=== PATIENT | female | born 1965 | race Caucasian/White ===

== ENCOUNTER 2017-05-05 18:04 | Emergency (ER) | payer MEDICAID ==
[~2017-05-05] VITALS: Ht 172.7 cm; Wt 79.4 kg
[~2017-05-05 18:04] MED LIST: ALPRAZOLAM0.5 M3 PO; AMLODIPINE5 M1 PO; APAP/HYDROCODON1 TA9 PO; FLEXERIL10 MG PO; GABAPENTIN600 MG PO; KEFLEX 500MG.500 MG PO; MELOXICAM7.5 MG PO; NOMEDS XX; NORCO 325 MG-51 TAB PO; NORVASC 5MG. TAB5 MG PO; PREMARIN 0.3MG0.3 MG PO; SUMATRIPTAN SUC50 M1 PO
[2017-05-05] MEDS ORDERED: SUBOXONE1 FI1 SL (18:14)
[2017-05-05] MEDS ORDERED: PREDNISONE 20MG20 MG PO (18:26)
[2017-05-05] MEDS ORDERED: AUGMENTIN 875-1 EACH PO (18:27)
[2017-05-05] MEDS ORDERED: TESSALON PERLE100 M1 PO (18:27)
--- NOTE | 2017-05-05 18:33 | [facility] Report ---
History of Present Issue Date/Time Seen by Provider 05/05/17 5213 Visit Reason Pt arrived:Walked Presenting Problem:PT STATES NAUSEA, COUGH AND CONGESTION FOR A WEEK Location if Accident: Onset of symptoms date/time:/ or onset unknown for:MEDICAL HX UNKNOWN Have you (or family members/close friends) recently traveled outside the [place]? N If Yes, where/when: Have you had exposure to infectious disease within the past month? TB? Other? Specify: Source patient, RN notes reviewed Exam Limitations no limitations Comment Cough and congestion for 4-5 days. Thinks she may have had fever. Sweats and chills. She is a smoker. Cough mostly non productive. Denies ear pain or sore throat. ALLERGIES Coded Allergies: No Known Allergies (10/27/15) Home Medications Active Scripts Amlodipine Besylate (Norvasc) 5 MG PO DAILY #30 TAB Prov: 10/27/15 Reported Medications Conjugated Estrogens (Premarin 0.3MG. Tablet) 0.3 MG PO DAILY #30 BUPRENORPHINE HCL/NALOXONE HCL (Suboxone 12 MG-3 MG Sl Film) 1 SL DAILY History Medical History General CAD? No Angina: No DC: No Hypertension? No Hyperlipidemia? No CHF? No DVT? No PE? No COPD? No Asthma? No Anemia? No GERD? No Gastric ulcers? No GI Bleed? No Hernia? No Thyroid Problems? No Hypothyroidism? No CVA? No Seizures? No Diabetes? No Renal Insuffiency? No UTI? No Stones? Yes GB Disease: Yes Nephritic Syndrome? No Asplenia? No Hepatitis? No Sickle Cell Disease? No Arthritis? No Migraines? Yes Cataracts? No Glaucoma? No MRSA? Yes HIV? No TB? No Anxiety? No Depression? No Cancer? No Immunization HX DT/Tetanus Unknown Surgical Hx Previous Surgery?Y GALLBLADDER Appendectomy PARTIAL HYSTERECTOMY L BREAST BIOPSY KNEE ARTHOSCOPY Social History Smoking Hx Smoker: Current Every Day Smoker Tobacco: Yes Type Cigarettes Packs/day < 1 Pack Alcohol Alcohol: No Review of Systems All Other Systems Reviewed and Negative Respiratory cough, wheezing Physical Exam Vital Signs Vital Signs Date Time Temp Pulse Resp B/P Pulse O2 O2 Flow FiO2 Ox Delivery Rate 05/05 1812 98.9 68 18 123/79 97 - WBC >12,000 or <4,000 or 10% bands? 2 or more SIRS Criteria Met? B/P:123/79 MAP:93 Creatinine >2.0? UA output<0.5ml/kg/hr for 2 hrs? Platelet count >100,000? Lactate >2.0mmol/1? INR >1.2 or PTT > than 60 sec? Evidence of Organ Dysfunction? Provider documented clinical suspician of infection? Sepsis Criteria Count: 0 Sepsis Risk: General Appearance normal appearance, no apparent distress Respiratory Status No: respiratory distress, trachea midline, chest symmetrical. Lung Sounds bilateral: normal breath sounds, lungs clear. Cardiovascular normal exam, regular rate/rhythm, no peripheral edema, no gallop, no JVD, no murmur, no rub Extremities non-tender, normal range of motion, normal inspection, normal capillary refill Neurologic alert, normal exam, oriented x 3 Mental status normal mood/affect Medical Decision Making LABS/Meds/Orders Pt receiving controlled substance in ED? No Departure Departure Time of Disposition 1823 Disposition DC Home or Self Care(routine) Clinical Impression Primary Impression: Bronchitis Condition STABLE Referrals ALF NUNO APRN (Family) Patient Instructions Acute Bronchitis Discharge Counseling Counseled pt/family regarding diagnosis, medications/RX, home care, follow up needs Prescriptions Current Visit Scripts Prednisone (Prednisone 20MG) 20 MG PO BID #10 TAB Benzonatate (Tessalon Perle) 100 MG PO TID #15 SGL Amoxicillin/Potassium Clav (Augmentin 875-125 Tablet) 1 EACH PO BID #20 TAB at 1833
[2017-05-05 18:39] VITALS: BP 123/79
--- OUTSIDE RECORDS SUMMARY | 2017-05-06 19:27 | External Medical Summary Rpt ---
Author Author , AMELIA Organization AMELIA Address Unknown Phone [email or web address] Fuel Care Team Providers Care Mixer Attendant Name Role Phone [employer], Unavailable Unavailable [employer], Unavailable Unavailable [employer] KC AND, KC AND Unavailable Unavailable BEINEKE MARY, BEINEKE Unavailable Unavailable MARY [facility], Unavailable Unavailable [facility] DOODNAUTH SENA, Unavailable Unavailable DOODNAUTH SENA JUAN LENIN, JUAN Unavailable Unavailable LENIN INGRID VERDE MD, Unavailable Unavailable INGRID VERDE MD TEE RHO, TEE Unavailable Unavailable RHO HARPEL JOSE RAMON, HARPEL Unavailable Unavailable JOSE RAMON DOWLING SAIMA, DOWLING Unavailable Unavailable [facility], Unavailable Unavailable [facility] Unavailable Unavailable [facility], [facility] HAYES TRA, HAYES TRA Unavailable Unavailable YAAKOV, YAAKOV Unavailable Unavailable YAAKOV NAN, YAAKOV Unavailable Unavailable NAN MASON CHARITO, MASON CHARITO Unavailable Unavailable [facility], [facility] ZORAIDA ARTURO, ZORAIDA Unavailable Unavailable ARTURO ZORAIDA ARTURO, ZORAIDA Unavailable Unavailable [facility]O [facility] Unavailable Unavailable DISEASE, [facility] Unavailable Unavailable URGENT TREAT, [facility]available [facility], [facility] SCALF KEITH, SCALF KEITH Unavailable Unavailable SOTINGEANU MARY, Unavailable Unavailable SOTINGEANU MARY [facility] Unavailable Unavailable EMERGENCY PHYS, [facility]ERGENC[facility]YS [facility], Unavailable Unavailable [facility] Unavailable Unavailable [facility], [facility] Unavailable Unavailable AGENCY, [facility] Purpose Continuity of Care Document - 05-18-2014 through 2016 Problems Code Diagnosis DOS Provider Status K219 GASTRO-ESOP 04-05-2017 [facility] WITHOUT IN ESOPHAGITIS K5900 CONSTIPATIO 04-05-2017 [facility] N [facility] UNSPECIFIED SOLUTIONS IN R0781 PLEURODYNIA 04-05-2017 [facility] IN R600 LOCALIZED 04-05-2017 [facility] IN Z1231 ENCOUNTER 04-05-2017 [facility] MALIG SOLUT[facility] NEOPLASM IN BREAST 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 OTHER 06-15-2016 [facility] SPECIFIED [facility] DISORDERS OF ADRENAL GLAND R4781 SLURRED 06-15-2016 [facility] [place] SPEECH [facility] M519 UNS THOR 05-22-2016 [facility] AR INC LUMBOSACRAL IV DISC D/O B0230 ZOSTER 05-03-2016 [facility] DISEASE URGENT UNSPECIFIED TREAT B028 ZOSTER WITH 05-03-2016 [facility] OTHER COUNTY COMPLICATIO URGENT NS TREAT M5116 INTERVERTEB 02-22-2016 [facility] DISC [facility] D/O INC W/RADICULOP ATHY LUMB RGN [id number] OTHER LONG 01-24-2016 [facility] TERM [facility] CURRENT INC DRUG THERAPY M4644 DISCITIS 12-28-2015 [facility]PEC[facility] THORACIC INC REGION M545 LOW BACK 12-07-2015 [facility] PAIN [facility] INC 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 M8618 OTHER ACUTE 11-20-2015 [facility] OSTEOMYELIT IS OTHER SITE R197 DIARRHEA 11-17-2015 [facility]PEC[facility] INC M159 POLYOSTEOAR 11-03-2015 [facility] UNSPECIFIED AGENCY Z452 ENCOUNTER 11-03-2015 [facility] MGMT AGENCY VASCULAR ACCESS DEVICE Z720 TOBACCO USE 11-03-2015 [facility] AGENC[facility] I10 ESSENTIAL 10-28-2015 [facility] HYPERTEN[facility]O [facility] N I159 SECONDARY 10-28-2015 [facility] N INC UNSPECIFIED R51 HEADACHE 10-28-2015 [facility] U18947 MIGRAINE 10-27-2015 [facility] W/[facility] NOT INTRACT PLLC W/O STAT MIGRAIN M129 ARTHROPATHY 10-07-2015 ZORAIDA ARTURO UNSPECIFIED M869 OSTEOMYELIT 10-07-2015 ZORAIDA ARTURO IS UNSPECIFIED M5184 OTHER 10-06-2015 [facility] RAL DISC D/O THORACIC REGION E441 MILD 10-04-2015 [facility] ORIE MALNUTRITIO N E871 HYPO-OSMOLA 10-04-2015 [facility] HYPONATREMI A K521 TOXIC 10-04-2015 [facility] ITIS AND COLITIS K5909 OTHER 10-04-2015 [facility] N N179 ACUTE 10-04-2015 [facility] KIDNEY [facility] FAILURE UNSPECIFIED [id number] ADVERSE 10-04-2015 [facility] EFFECT [facility] SYS ANTIBIOTICS INIT ENCNTR Z681 BODY MASS 10-04-2015 [facility] INDEX [facility] 19 OR LESS ADULT M549 DORSALGIA 09-29-2015 [facility] INC B15941 PAIN IN 09-01-2015 [facility]PEC[facility] SHOULDER INC M546 PAIN IN 08-24-2015 [place] [facility] R937 ABN FIND ON 08-24-2015 [place] [facility] O[facility] PART [facility]ING ASS MUSCULOSKEL ETAL SYS M5126 OTH 08-15-2015 [place] INTER[facility] MEDICAL RAL DISC IMAGING ASS DISPLACEMEN T LUMBAR RGN R200 ANESTHESIA 08-15-2015 [place] OF SKIN [facility] 7242 LUMBAGO 04-02-2015 [facility] 54960 DEGEN 03-28-2015 [facility] LUMBAR/LUMB N EMERGENCY OSACRAL PHYS INTERVERTEB RAL DISC 7244 THORACIC/KATHRINE 03-28-2015 [facility] MBOSACR[facility] RADIOLOGY NEURITIS/RA DICULITIS UNSPEC 8472 LUMBAR 03-28-2015 [facility] SPR[facility] AND N EMERGENCY STRAIN PHYS E9270 OVEREXERTIO 03-28-2015 [facility] N FROM N EMERGENCY SUDDEN PHYS STRENUOUS MOVEMENT 12834 TRICHOMONAL 07-12-2014 INGRID VERDE MD VULVOVAGINI TIS 73318 DETRUSOR 07-12-2014 [facility] Mock SPHINCTER AMMON CHASE DYSSYNERGIA 6272 SYMPTOMATIC 07-12-2014 INGRID VERDE MD MENOPAUSAL/ FEMALE CLIMACTERIC STATES 39487 UNS PROLAPS 07-06-2014 [facility] Mock VAG SINGH AMMON CHASE W/O MENTION UTERN PROLAPS 6256 FEMALE 07-06-2014 INGRID VERDE MD INCONTINENC E 6259 UNSPEC 07-01-2014 INGRID VERDE MD ASSOC W/FEMALE GENITAL ORGANS 6273 POSTMENOPAU 07-01-2014 INGRID VERDE MD ATROPHIC VAGINITIS V7231 ROUTINE 07-01-2014 [facility] Mock GYNECOLOGIC AMMON CHASE AL EXAMINATION V7641 SCREENING 07-01-2014 INGRID VERDE MD MALIGNANT NEOPLASM OF THE RECTUM 6827 CELLULITIS 05-18-2014 [facility] ABSCESS N EMERGENCY OF FOOT PHYS EXCEPT TOES Allergies, Adverse Reactions, Alerts Clinical Alert Notifications Alert Asthma: absence of controller with h/o SA beta agonist Asthma: no influenza vaccine in the last 365 days Medications Na ND Rx Da Fi Fi Am Da Di Ph RX Ph St me C No te ll ll ou ys ag ar # ys at rm s nt no ma ic us Or Da si cy ia de te s n re d BU 00 07 08 14 7 00 RO Ac AK 05 -1 -0 .0 00 SS ti EN 40 3- 4- 00 01 ve OR [address] PH 91 17 17 01 UG IN 3 78 S -N AL OX ON 8- 2 MG SL GA 68 07 07 90 30 00 CA Ac BA 46 -0 -2 .0 00 RL ti PE 20 3- 8- 00 00 IS ve NT 12 20 20 77 LE IN 60 17 [address] 60 UG 0 S MG TA BL ET BU 00 07 07 16 8 00 CA Ac AK 05 -0 -2 .0 00 RL ti EN 40 5- 8- 00 00 IS ve OR 18 20 20 77 LE PH 91 17 [address] -N UG AL S OX ON 8- 2 MG SL HY 00 06 07 [address] 18 -2 -2 .0 00 RL ti OX 50 8- 1- 00 00 IS ve YZ 61 20 20 77 LE IN 50 17 [address] CHISHOLM UG M S 50 MG CA P IB 67 06 07 90 30 00 CA Ac UP 87 -2 -2 .0 00 RL ti RO 70 8- 1- 00 00 IS ve FE 32 20 20 77 LE N 10 17 [address] 0 UG MG S TA BL ET VE 00 06 07 18 16 00 CA Ac NT 17 -2 -2 .0 00 RL ti OL 30 8- 1- 00 00 IS ve IN 68 20 20 77 LE 22 17 [address] Coughlin UG 90 S MC G IN CUADRA LE R PA 00 06 07 30 30 00 CA Ac RO 37 -2 -2 .0 00 RL ti XE 87 8- 1- 00 00 IS ve TI 00 20 20 77 LE NE 21 17 17 68 0 91 HC UG L S 20 MG TA BL ET AK 00 06 07 30 30 00 CA Ac EM 04 -2 -2 .0 00 RL ti AR 61 8- 1- 00 00 IS ve IN 10 20 20 77 LE 08 17 [address] 3 UG MG S TA BL ET AM 67 06 07 30 30 00 CA Ac LO 87 -2 -2 .0 00 RL ti DI 70 8- 1- 00 00 IS ve PI 19 20 20 77 LE NE 90 17 [address] BE UG SY S LA TE 10 MG TA B BU 00 06 07 14 7 00 RO Ac AK 05 -2 -2 .0 00 SS ti EN 40 8- 1- 00 01 ve OR [address] PH 91 17 17 82 UG IN 3 66 S -N AL OX ON 8- 2 MG SL AK 00 06 07 90 30 00 CA Ac OP 11 -2 -1 .0 00 RL ti RA 51 3- 4- 00 00 IS ve NO 66 20 20 77 LE LO 00 17 17 [address] 20 UG S MG TA BL ET ME 00 05 [address] Ac TH 60 -2 -1 .0 00 AZ ti OC 34 3- 6- 00 00 A ve AR [address] GEOFF 52 17 17 64 UG MO 1 67 L SP 50 EC 0 IA MG LT Y TA CA BL RE ET HY 00 05 [address] 18 -0 -2 .0 00 AZ ti OX 50 5- 6- 00 00 A ve YZ [address] IN 50 17 17 64 UG E 5 66 PA SP M EC 50 IA LT MG Y CA CA RE P ME 00 05 [address] Ac TH 60 -0 -2 .0 00 AZ ti OC 34 5- 6- 00 00 A ve AR [address] BA 52 17 17 64 UG MO 1 67 L SP 50 EC 0 IA MG LT Y TA CA BL RE ET AK 00 05 [address] Ac OP 60 -0 -2 .0 00 AZ ti RA 35 5- 6- 00 00 A ve NO [address] LO 32 17 17 64 UG L 1 68 20 SP EC MG IA LT TA Y BL CA ET RE NI 43 04 [address] Ac CO 59 -2 -1 .0 00 AZ ti TI 80 6- 9- 00 00 A ve NE [address] 82 17 17 60 UG 21 8 26 SP MG EC /2 IA 4H LT R Y PA CA TC RE H IB 67 04 [address] Ac UP 87 -2 -1 .0 00 AZ ti RO 70 6- 9- 00 00 A ve FE [address] N 90 17 17 60 UG 40 5 27 0 SP MG EC IA TA LT BL Y ET CA RE AM 69 04 [address] Ac LO 09 -2 -1 .0 00 AZ ti DI 70 6- 9- 00 00 A ve PI [address] NE 80 17 17 60 UG 5 53 BE SP SY EC LA IA TE LT Y 10 CA RE MG TA B AK 00 04 [address] Ac EM 04 -2 -1 .0 00 AZ ti AR 61 6- 9- 00 00 A ve IN [address] 08 17 17 60 UG 0. 1 54 3 SP MG EC IA TA LT BL Y ET CA RE PA 00 04 [address] Ac RO 37 -2 -1 .0 00 AZ ti XE 87 6- 9- 00 00 A ve TI [address] TYLER 21 17 17 60 UG 0 55 HC SP L EC 20 IA LT MG Y CA TA RE BL ET VE 00 04 [address] Ac NT 17 -2 -1 .0 00 AZ ti OL 30 8- 9- 00 00 A ve IN [address] 22 17 17 61 UG HF 0 26 A SP 90 EC IA MC LT G Y IN CA CUADRA RE LE R GA 68 03 03 90 30 00 CA Ac BA 46 -0 -3 .0 00 RL ti PE 20 6- 1- 00 00 IS ve NT 12 20 20 77 LE IN 60 17 [address] 60 UG 0 S MG TA BL ET BU 00 03 03 10 5 00 RO Ac AK 05 -0 -2 .0 00 SS ti EN 40 2- 4- 00 01 ve OR [address] PH 91 17 17 33 UG IN 3 58 S -N AL OX ON 8- 2 MG SL GA 68 02 03 90 30 00 CA Ac BA 46 -0 -1 .0 00 RL ti PE 20 7- 0- 00 00 IS ve NT 12 20 20 76 LE IN 60 17 [address] 60 UG 0 S MG TA BL ET AK 00 02 02 30 30 00 CA Ac EM 04 -0 -2 .0 00 RL ti AR 61 3- 4- 00 00 IS ve IN 10 20 20 76 LE 08 17 [address] 3 UG MG S TA BL ET AM 67 02 02 30 30 00 CA Ac LO 87 -0 -2 .0 00 RL ti DI 70 3- 4- 00 00 IS ve PI 19 20 20 76 LE NE 90 17 17 40 5 07 BE UG SY S LA TE 10 MG TA B PA 00 02 02 30 30 00 CA Ac RO 37 -0 -2 .0 00 RL ti XE 87 3- 4- 00 00 IS ve TI 00 20 20 76 LE NE 21 17 17 97 0 75 HC UG L S 20 MG TA BL ET GA 68 01 02 90 30 00 CA Ac BA 46 -1 -0 .0 00 RL ti PE 20 0- 3- 00 00 IS ve NT 12 20 20 76 LE IN 60 17 [address] 60 UG 0 S MG TA BL ET AK 00 12 01 30 30 00 CA Ac EM 04 -2 -2 .0 00 RL ti AR 61 9- 0- 00 00 IS ve IN 10 20 20 76 LE 08 16 [address] 3 UG MG S TA BL ET AM 67 12 01 30 30 00 CA Ac LO 87 -2 -2 .0 00 RL ti DI 70 9- 0- 00 00 IS ve PI 19 20 20 76 LE NE 90 16 [address] MORA UG SY S LA TE 10 MG TA B GA 68 12 01 90 30 00 CA Ac BA 46 -1 -0 .0 00 RL ti PE 20 2- 9- 00 00 IS ve NT 12 20 20 76 LE IN 60 16 [address] 60 UG 0 S MG TA BL ET Procedures Procedure [place] [address] [facility] HEAD/BRAI 6 RADIOLOGY N W/[place] [address] [facility] ABDOMEN & 6 RADIOLOGY PELVIS W/O CONTRAST MATERIAL DRUG TST G0477 [facility] PRESUMP;C 6 [facility] PBL BEING INC INC READ DC OPT OBV ONLY DRUG TST G0477 [facility] PRESUMP;C 6 [facility] PBL BEING INC INC READ DC OPT OBV ONLY DRUG TEST G0481 [facility] DEFINITV [address] [facility] [address] ID INC INC METH P DAY 8-14 DRUG CL DRUG TST G0477 [facility] PRESUMP;C 6 [facility] PBL BEING INC INC READ DC OPT OBV ONLY DRUG TEST G0480 [facility] DEFINITV [address] [facility] [address] [address] ID INC INC METH P DAY 1-7 DRUG CL DRUG TST G0477 [facility] PRESUMP;C 6 [facility] PBL BEING INC INC READ DC OPT OBV ONLY DRUG TEST G0481 [facility] DEFINITV [address] [facility] [address] [address] ID INC INC METH P DAY 8-14 DRUG CL DRUG 53588 [facility] SCREENING 6 [facility] INC INC BENZODIAZ EPINES 1-12 DRUG TST G0477 [facility] PRESUMP;C 6 [facility] PBL BEING INC INC READ DC OPT OBV ONLY DRUG 58774 [facility] SCREENING 6 [facility] OPIOIDS INC INC & OPIATE ANALOGS 5/MORE DRUG TST G0477 [facility] PRESUMP;C 6 [facility] PBL [facility]ING INC INC READ DC OPT OBV ONLY HIT ABX S9502 [facility], [facility], ANTIVIRAL 6 INC INC /ANTIFUNG AL; Q8 HRS CLOTH EXAMINER HAND HIT ABX S9502 [facility], AMERIMED, ANTIVIRAL 6 INC INC /ANTIFUNG AL; Q8 HRS CLOTH EXAMINER HAND HIT ABX S9502 [facility], AMERIMED, ANTIVIRAL 6 INC INC /ANTIFUNG AL; Q8 HRS CLOTH EXAMINER HAND HIT ABX S9502 [facility], AMERIMED, ANTIVIRAL 6 INC INC /ANTIFUNG AL; Q8 HRS CLOTH EXAMINER HAND INJ J2543 [facility], [facility], PIPERACIL 6 INC INC HERMILO SOD/TAZOB ACTAM SOD 1 G/0.125 G COMPREHEN 22957 [facility] SIVE 6 [facility] METABOLIC INC INC PANEL COLLECTIO 13203 [facility] N VENOUS 6 [facility] BLOOD INC INC VENIPUNCT URE SEDIMENTA 18304 B[facility] TION RATE 6 [facility] RBC INC INC NON-AUTOM ATED BLOOD 93223 [facility] COUNT 6 [facility] COMPLETE INC INC AUTO&AUTO DIFRNTL WBC C-REACTIV 23120 [facility] E PROTEIN 6 [facility] INC INC DIRECT G0299 [facility] RN 6 [facility] AGENCY AGENCY SPICE SET EA 15 MIN INJ J2543 [facility], AMERIMED, PIPERACIL 6 INC INC HERMILO SOD/TAZOB ACTAM SOD 1 G/0.125 G INJECTION J1642 [facility], [facility], HEPARIN 6 INC INC SODIUM PER 10 UNITS HIT ABX S9502 [facility], AMER[facility]ED, ANTIVIRAL 6 INC INC /ANTIFUNG AL; Q8 HRS CLOTH EXAMINER HAND HIT ABX S9502 [facility], AMER[facility]ED, ANTIVIRAL 6 INC INC /ANTIFUNG AL; Q8 HRS CLOTH EXAMINER HAND DIRECT G0299 ARELI [facility] RN 6 [facility] AGENCY AGENCY SPICE SET EA 15 MIN INJ J2543 [facility], AMERIMED, PIPERACIL 6 INC INC HERMILO SOD/TAZOB ACTAM SOD 1 G/0.125 G INJ J2543 [facility], AMERIMED, PIPERACIL 6 INC INC HERMILO SOD/TAZOB ACTAM SOD 1 G/0.125 G DRUG TST G0477 [facility] PRESUMP;C 6 [facility] PBL BEING INC INC READ DC OPT OBV ONLY HIT ABX S9502 AMERIM[facility], AMERIMED, ANTIVIRAL 6 INC INC /ANTIFUNG AL; Q8 HRS CLOTH EXAMINER HAND HIT ABX S9502 [facility], AMERIMED, ANTIVIRAL 6 INC INC /ANTIFUNG AL; Q8 HRS CLOTH EXAMINER HAND HIT ABX S9502 [facility], AMERIMED, ANTIVIRAL 6 INC INC /ANTIFUNG AL; Q8 HRS CLOTH EXAMINER HAND HIT ABX S9502 AMERIM[facility], AMERIMED, ANTIVIRAL 6 INC INC /ANTIFUNG AL; Q8 HRS CLOTH EXAMINER HAND HIT ABX S9502 AMERIMED, AMERIMED, ANTIVIRAL 6 INC INC /ANTIFUNG AL; Q8 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 J1642 [facility], AMERIMED, HEPARIN 6 INC INC SODIUM PER 10 UNITS INJ J2543 [facility], AMERIMED, PIPERACIL 6 INC INC HERMILO SOD/TAZOB ACTAM SOD 1 G/0.125 G HIT ABX S9502 [facility], [facility], ANTIVIRAL 6 INC INC /ANTIFUNG AL; Q8 HRS CLOTH EXAMINER HAND COLLECTIO 42780 [facility] N VENOUS 6 [facility] BLOOD INC INC VENIPUNCT URE BASIC 02651 [facility] METABOLIC 6 [facility] PANEL INC INC CALCIUM TOTAL DRUG 32083 [facility] SCREEN 6 [facility] QUANTITAT INC INC JUAN PABLO VANCOMYCI N SEDIMENTA 71324 [facility] TION RATE 6 [facility] RBC INC INC NON-AUTOM ATED BLOOD 49861 [facility] COUNT 6 [facility] COMPLETE INC INC AUTO&AUTO DIFRNTL WBC HIT ABX S9501 [facility], AMER[facility]ED, ANTIVIRAL 6 INC INC /ANTIFUNG AL TX; Q12 HRS LEVI C-REACTIV 31601 [facility] E PROTEIN 6 [facility] INC INC DIRECT G0299 ARELI [facility] RN 6 [facility] HEALTH/HO AGENCY AGENCY SPICE SET EA 15 MIN HIT ABX S9501 [facility], AMERIMED, ANTIVIRAL 6 INC INC /ANTIFUNG AL TX; Q12 HRS LEVI HIT ABX S9502 [facility], AMERIMED, ANTIVIRAL 6 INC INC /ANTIFUNG AL; Q8 HRS CLOTH EXAMINER HAND HIT ABX S9502 AMERIMED, AMERIMED, ANTIVIRAL 6 INC INC /ANTIFUNG AL; Q8 HRS CLOTH EXAMINER HAND HIT ABX S9501 [facility], AMERIMED, ANTIVIRAL 6 INC INC /ANTIFUNG AL TX; Q12 HRS LEVI HIT ABX S9501 [facility], AMERIMED, ANTIVIRAL 6 INC INC /ANTIFUNG AL TX; Q12 HRS LEVI HIT ABX S9502 [facility], AMERIMED, ANTIVIRAL 6 INC INC /ANTIFUNG AL; Q8 HRS CLOTH EXAMINER HAND DRUG 85754 [facility] SCREEN 6 [facility] QUANTITAT INC INC JUAN PABLO VANCOMYCI N BASIC 55370 [facility] METABOLIC 6 [facility] PANEL INC INC CALCIUM TOTAL COLLECTIO 95607 [facility] N VENOUS 6 [facility] BLOOD INC INC VENIPUNCT URE HIT ABX S9502 AMERIMED, AMERIMED, ANTIVIRAL 6 INC INC /ANTIFUNG AL; Q8 HRS CLOTH EXAMINER HAND HIT ABX S9501 [facility], AMERIMED, ANTIVIRAL 6 INC INC /ANTIFUNG AL TX; Q12 HRS LVEI HIT ABX S9501 [facility], AMERIMED, ANTIVIRAL 6 INC INC /ANTIFUNG AL TX; Q12 HRS LEVI HIT ABX S9502 AMER[facility], AMERIMED, ANTIVIRAL 6 INC INC /ANTIFUNG AL; Q8 HRS CLOTH EXAMINER HAND HIT ABX S9502 [facility], AMER[facility]ED, ANTIVIRAL 6 INC INC /ANTIFUNG AL; [place] [address] [place] [facility] HEAD/BRAI 6 MEDICAL MARY N W/O IMAGING CONTRAST ASS MATERIAL INJECTION J2405 [facility] 6 [facility] ONDANSETR INC INC ON HCL PER 1 MG COMPREHEN 01449 [facility] SIVE 6 [facility] METABOLIC INC INC PANEL THERAPEUT 90028 [facility] IC 6 [facility] INJECTION INC INC IV PUSH EACH NEW DRUG BLOOD 78953 [facility] COUNT 6 [facility] COMPLETE INC INC AUTO&AUTO DIFRNTL WBC HIT ABX S9501 [facility], AMERIMED, ANTIVIRAL 6 INC INC /ANTIFUNG AL TX; Q12 HRS LEVI THER 07868 [facility] PROPH/DX 6 [facility] NJX IV INC INC PUSH SINGLE/1S T SBST/DRUG C-REACTIV 42125 [facility] E PROTEIN 6 [facility] INC INC THERAPEUT 91601 [facility] IC 6 [facility] PROPHYLAC INC INC TIC/DX INJECTION SUBQ/IM HIT ABX S9501 AMERIMED, AMERIMED, ANTIVIRAL 6 INC INC /ANTIFUNG AL TX; Q12 HRS LEVI SEDIMENTA 18694 [facility] TION RATE 6 [facility] RBC INC INC NON-AUTOM ATED BLOOD 01639 [facility] COUNT 6 [facility] COMPLETE INC INC AUTO&AUTO DIFRNTL WBC DIRECT G0299 [facility]LI [place] [facility] RN 6 [facility] HEALTH/HO AGENCY AGENCY SPICE SET EA 15 MIN COLLECTIO 59080 [facility] N VENOUS 6 [facility] BLOOD INC INC VENIPUNCT URE HIT ABX S9502 AMERIMED, AMERIMED, ANTIVIRAL 6 INC INC /ANTIFUNG AL; Q8 HRS CLOTH EXAMINER HAND BASIC 29246 [facility] METABOLIC 6 [facility] PANEL INC INC CALCIUM TOTAL DRUG 41932 [facility] SCREEN 6 [facility] QUANTITAT INC INC JUAN PABLO VANCOMYCI N HIT ABX S9502 AMERIMED, AMERIMED, ANTIVIRAL 6 INC INC /ANTIFUNG AL; Q8 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 J3370 AMERIMED, AMERIMED, 6 INC INC VANCOMYCI N HCL 500 MG HIT ABX S9501 AMER[facility], AMERIMED, ANTIVIRAL 6 INC INC /ANTIFUNG AL TX; Q12 HRS LEVI INJ J2543 [facility], AMERIMED, PIPERACIL 6 INC INC HERMILO SOD/TAZOB ACTAM SOD 1 G/0.125 G HIT ABX S9501 AMER[facility], AMERIMED, ANTIVIRAL 6 INC INC /ANTIFUNG AL TX; Q12 HRS LEVI HIT ABX S9502 AMERIMED, AMERIMED, ANTIVIRAL 6 INC INC /ANTIFUNG AL; Q8 HRS CLOTH EXAMINER HAND HIT ABX S9502 AMERIMED, AMERIMED, ANTIVIRAL 6 INC INC /ANTIFUNG AL; Q8 HRS CLOTH EXAMINER HAND HIT ABX S9501 AMER[facility], AMERIMED, ANTIVIRAL 6 INC INC /ANTIFUNG AL TX; Q12 HRS LEVI HIT ABX S9501 [facility], AMERIMED, ANTIVIRAL 6 INC INC /ANTIFUNG AL TX; Q12 HRS LEVI HIT ABX S9502 AMER[facility], AMERIMED, ANTIVIRAL 6 INC INC /ANTIFUNG AL; Q8 HRS CLOTH EXAMINER HAND HIT ABX S9502 AMERIMED, AMERIMED, ANTIVIRAL 6 INC INC /ANTIFUNG AL; Q8 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 J3370 AMERIMED, AMERIMED, 6 INC INC VANCOMYCI N HCL 500 MG INJECTION J1642 [facility], AMERIMED, HEPARIN 6 INC INC SODIUM PER 10 UNITS HIT ABX S9501 AMERIMED, AMERIMED, ANTIVIRAL 6 INC INC /ANTIFUNG AL TX; Q12 HRS LEVI INJ J2543 [facility], AMERIMED, PIPERACIL 6 INC INC HERMILO SOD/TAZOB ACTAM SOD 1 G/0.125 G HIT ABX S9502 AMERIMED, AMERIMED, ANTIVIRAL 6 INC INC /ANTIFUNG AL; Q8 HRS CLOTH EXAMINER HAND HIT ABX S9502 AMERIMED, AMERIMED, ANTIVIRAL 6 INC INC /ANTIFUNG AL; Q8 HRS CLOTH EXAMINER HAND DRUG 94234 [facility] SCREEN 6 [facility] QUANTITAT INC INC JUAN PABLO VANCOMYCI N BASIC 81851 [facility] METABOLIC 6 [facility] PANEL INC INC CALCIUM TOTAL COLLECTIO 81053 B[facility] N VENOUS 6 [facility] BLOOD INC INC VENIPUNCT URE DIRECT G0299 ARELI ESPINOZA RN 6 [facility] HOME [facility] HEALTH HEALTH/HO AGENCY AGENCY SPICE SET EA 15 MIN C-REACTIV 04553 [facility] E PROTEIN 6 [facility] INC INC BLOOD 83317 [facility] COUNT 6 [facility] COMPLETE INC INC AUTO&AUTO DIFRNTL WBC SEDIMENTA 80095 [facility] TION RATE 6 [facility] RBC INC INC NON-AUTOM ATED HIT ABX S9502 AMERIM[facility], AMERIMED, ANTIVIRAL 6 INC INC /ANTIFUNG AL; Q8 HRS CLOTH EXAMINER HAND HIT ABX S9502 AMERIM[facility], AMERIMED, ANTIVIRAL 6 INC INC /ANTIFUNG AL; Q8 HRS CLOTH EXAMINER HAND HIT ABX S9502 AMERIMED, AMERIMED, ANTIVIRAL 6 INC INC /ANTIFUNG AL; Q8 HRS CLOTH EXAMINER HAND HIT ABX S9502 AMERIMED, AMERIMED, ANTIVIRAL 6 INC INC /ANTIFUNG AL; Q8 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 J1642 AMERIM[facility], AMERIMED, HEPARIN 6 INC INC SODIUM PER 10 UNITS INJECTION J3370 AMERIM[facility], AMERIMED, 6 INC INC VANCOMYCI N HCL 500 MG INJ J2543 [facility], AMERIMED, PIPERACIL 6 INC INC HERMILO SOD/TAZOB ACTAM SOD 1 G/0.125 G HIT ABX S9502 [facility]IM[facility], AMERIMED, ANTIVIRAL 6 INC INC /ANTIFUNG AL; Q8 HRS CLOTH EXAMINER HAND HIT ABX S9502 AMERIMED, AMERIMED, ANTIVIRAL 6 INC INC /ANTIFUNG AL; Q8 HRS CLOTH EXAMINER HAND DIRECT G0299 ARELI SINGLETON SNS RN 6 HOME [facility] HEALTH/HO AGENCY AGENCY SPICE SET EA 15 MIN C-REACTIV 20875 [facility] E PROTEIN 6 [facility] INC INC SEDIMENTA 61786 [facility] TION RATE 6 [facility] RBC INC INC NON-AUTOM ATED BLOOD 30561 [facility] COUNT 6 [facility] COMPLETE INC INC AUTO&AUTO DIFRNTL WBC HIT ABX S9502 AMERIMED, AMERIMED, ANTIVIRAL 6 INC INC /ANTIFUNG AL; Q8 HRS CLOTH EXAMINER HAND BASIC 69973 [facility] METABOLIC 6 [facility] PANEL INC INC CALCIUM TOTAL DRUG 85403 [facility] SCREEN 6 [facility] QUANTITAT INC INC JUAN PABLO VANCOMYCI N HIT ABX S9502 AMERIMED, AMERIMED, ANTIVIRAL 6 INC INC /ANTIFUNG AL; Q8 HRS CLOTH EXAMINER HAND DRUG TST G0477 [facility] PRESUMP;C 6 [facility] PBL BEING INC INC READ DC OPT OBV ONLY HIT ABX S9502 AMERIMED, AMERIMED, ANTIVIRAL 6 INC INC /ANTIFUNG AL; Q8 HRS CLOTH EXAMINER HAND HIT ABX S9502 AMERIMED, AMERIMED, ANTIVIRAL 6 INC INC /ANTIFUNG AL; Q8 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 J3370 AMERIMED, AMERIMED, 6 INC INC VANCOMYCI N HCL 500 MG INJECTION J1642 AMERIM[facility], AMERIMED, HEPARIN 6 INC INC SODIUM PER 10 UNITS DIRECT G0299 ARELI ESPINOZA RN 6 HOME [facility] HEALTH/HO AGENCY AGENCY SPICE SET EA 15 MIN [facility]OSPITAL 87707 [facility] DISCHARGE 6 ARTURO ARTURO DAY MANAGEMEN T 30 MIN/< INJ J2543 AMERIM[facility], AMERIMED, PIPERACIL 6 INC INC HERMILO SOD/TAZOB ACTAM SOD 1 G/0.125 G SBSQ 63197 [facility] 6 SENA SENA CARE/DAY 25 MINUTES SBSQ 69155 [facility] 6 SENA SENA CARE/DAY 25 MINUTES SBSQ 11663 [facility] 6 ARTURO ARTURO CARE/DAY 25 MINUTES SBSQ 69204 [facility] 6 SENA SENA CARE/DAY 25 MINUTES INTRODUCT [id number] [facility] ION OTH [address] [place] [address] ANTI-INFE CTIVE PERIPH VEIN PERQ INSERTION [id number] [facility] INFUSION [address] [place] [address] DEVICE RT BASILIC VEIN PERQ EXCISION [id number] [facility] THORACIC [address] [place] [address] [place] [address] [facility] [place] [facility] RADIOLOG[facility] NEEDLE PLACEMENT MODERATE 41785 [facility] [place] [facility] SEDATJ 6 RADIOLOGY [facility] SAME PHYS/QHP 5/>YRS INIT 30 MIN PRQ ASPIR 32417 [facility] [place] [facility] 6 RADIOLOGY [facility] PULPOSUS/ INTERVERT EBRAL DISC/PVRT TISS ULTRASONO [id number] [address] [facility] HEART WITH AORTA TRANSESOP HAGEAL SBSQ 20109 [facility] 6 SENA ESNA CARE/DAY 35 MINUTES INITIAL 97264 [facility] 6 SENA SENA CARE/DAY 70 MINUTES RADEX 28468 [facility] 6 [place] [facility] ORTHOPAED [place] 2/3 [facility] VIEWS COLLECTIO 45200 [facility] BLOOD [facility] INC VENIPUNCT URE BASIC 49512 [facility] METABOLIC 5 [facility] PANEL INC INC CALCIUM TOTAL BLOOD 80117 [facility] COUNT [facility] COMPLETE INC INC AUTO&AUTO DIFRNTL WBC DRUG 59454 [facility] SCREEN 5 [facility] QUANT INC INC AMPHETAMI CHEMO 1 OR 2 BLOOD 14972 [facility] COUNT [facility] COMPLETE INC INC AUTO&AUTO DIFRNTL WBC SEDIMENTA 01119 [facility] TION RATE 5 [facility] RBC INC INC NON-AUTOM ATED C-REACTIV 11759 [facility] E PROTEIN 5 [facility] INC INC COLLECTIO 36362 [facility] N VENOUS 5 [facility] BLOOD INC INC VENIPUNCT URE COMPREHEN 55463 [facility] SIVE 5 [facility] METABOLIC INC INC PANEL MRI 65191 [facility] SPINAL 5 [facility] CANAL INC INC THORACIC W/O CONTRAST MATRL MRI 96675 [facility] SP[facility]AL [facility] CANAL INC INC LUMBAR W/O CONTRAST MATERIAL 3D 56418 [facility] RENDERING 5 [facility] W/INTERP INC INC & POSTPROCE SS SUPERVISI ON RADEX 39708 [facility]TR[facility] [place] TEE SPINE 5 RADIOLOGY RHO LUMBOSACR AL 2/3 VIEWS COMPLEX 66476 [facility] UROFLOMET 4 [facility] RY COMPLX 79592 [facility] CYSTOMETR 4 [facility] O W/VOID PRESS & URETHRAL PROFIL 86867 [facility] TRANSVAGI 4 [facility] IADNA 23650 [facility] NEISSERIA 4 [facility] GONORRHOE AE DIRECT PROBE TQ BLOOD 54640 [facility] OCCULT 4 [facility] PEROXIDAS E ACTV QUAL FECES 1-3 SPEC CULTURE 47522 [facility] CHLAMYDIA 4 [facility] ANY SOURCE URINLS 44247 [facility] DIP 4 [facility] STICK/TAB LET REAGNT NON-AUTO MICRSCPY Encounters Encounter Start End Date Code Location Performer Type Date OFFICE 16533 [facility] 7 7 HEALTH T VISIT SOLUTIONS 25 IN MINUTES [facility] BLAZE - 6 6 [facility] OFFICE 12603 NADIA NUNO [facility] 6 6 [place] [address] URGENT MINUT[facility] BLAZE - 6 6 [facility] BLAZE - 6 6 [facility] BLAZE [facility] 6 6 [facility] BLAZE - 6 6 [facility] 6 [facility] OFFICE 96102 ABELARDO [facility] AND OUTPATIEN 6 6 T VISIT INFECTIOU 25 S DISEASE [facility] BLAZE [facility] 6 6 [facility] 85666 ABELARDO [facility] OUTPATIEN 6 6 T VISIT INFECTIOU 25 S DISEASE [facility] BLAZE [facility] 6 6 [facility] OUTPATIEN INC T HOME [facility], 6 6 HOME [facility] BLAZE - 6 6 [facility] OUTPATIEN INC T EMERGENCY 88799 BLAZE 6 6 [facility] DEPARTMEN [facility] T VISIT MODERATE SEVERITY HOSPITAL BLAZE - 6 6 [facility] OUTPATIEN INC EMERGENCY 37576 LAUREN MARTINEZ DEPT 6 6 [facility]IC[facility] HIGH SEVERITY& [facility] BLAZE [facility] 6 6 [facility] OUTPATIEN INC T EMERGENCY 31177 BLAZE 6 6 [facility] DEPARTMEN [facility] T VISIT MODERATE SEVERITY EMERGENCY 95834 LAUREN HALE 6 6 PHYSICIAN U [facility] T VISIT HIGH/URGE NT SEVERITY [facility], 6 6 HOME INPATIENT HEALTH [facility] BLAZE - 6 6 [facility] OUTPATIEN INC HOSPITAL BLAZE [facility] 6 6 [facility]EN [facility], 6 6 HOME INPATIENT HEALTH [facility] [place] [address] 6 HOSPITAL INPATIENT OFFICE 16741 [facility] 6 6 [place] T VISIT ORTHOPAED 15 [facility] MINUTES [facility]OSPITAL [facility]ZE [facility] 5 5 [facility] B[facility]ZE - 5 5 [facility] OUTPATIEN INC T OFFICE 44387 [facility] J[facility]AN OUTPATIEN 5 5 PHYSICIAN LENIN T VISIT S GROUP 10 MINUTES OFFICE 15391 [facility] 5 5 [place] ION ORTHOPAED NEW/ESTAB [facility] PATIENT 60 MIN OFFICE 27826 [facility] J[facility] OUTPATIEN 5 5 PHYSICIAN LENIN T VISIT S GROUP 10 MINUTES HOSPITAL BLAZE - 5 5 [facility]IEN [facility] B[facility] - 5 5 [facility] 5 5 [facility] T OFFICE 83207 [facility] OUTPATIEN 5 5 PHYSICIAN LENIN T VISIT S GROUP 10 MINUTES EMERGENCY 13982 LAUREN MCNEILL 5 5 PHYSICIAN DEPARTMEN S, PLLC T VISIT HIGH/URGE NT SEVERITY EMERGENCY 60023 [facility] BLAZE 5 5 MALATHI [facility] DEPARTMEN EMERGENCY T VISIT PHYS HIGH/URGE NT SEVERITY OFFICE 20362 [facility] OUTPATIEN 4 4 [facility] T VISIT 15 MINUTES HOSPITAL BLAZE - 4 4 [facility] OUTPATIEN [facility] T INITIAL 94611 INGR[facility] PREVENTIV 4 4 [facility] E MEDICINE NEW PATIENT [id number] EMERGENCY 33844 [facility] JUAN 4 4 MALATHI LENIN DEPARTMEN EMERGENCY T VISIT PHYS MODERATE SEVERITY
--- OUTSIDE RECORDS SUMMARY | 2017-05-06 19:27 | External Medical Summary Rpt ---
Author Author , AMELIA Organization AMELIA Address Unknown Phone [email or web address] [employer] Care Team Providers Care Or Assistant Name Role Phone [employer], Unavailable Unavailable [...] NAN MASON CHARITO, MASON CHARITO Unavailable Unavailable [facility] Unavailable Unavailable [facility], [facility] ZORAIDA ARTURO, ZORAIDA Unavailable Unavailable [facility] ZORAIDA ARTURO, ZORAIDA Unavailable Unavailable [facility] Unavailable Unavailable DISEASE, [facility] Unavailable Unavailable URGENT TREAT, [facility] Un[facility]available [facility], [facility] SCALF KEITH, SCALF KEITH Unavailable Unavailable SOTINGEANU MARY, Unavailable Unavailable SOTINGEANU M[facility] Unavailable Unavailable EMERGENCY PHYS, [facility]GENCY [facility]YS [facility], Unavailable Unavailable 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 E441 MILD 10-04-2015 [facility] ORIE MALNUTRITIO N E871 HYPO-OSMOLA 10-04-2015 [facility] HYPONATREMI A K521 TOXIC 10-04-2015 [facility] ITIS AND COLITIS K5909 OTHER 10-04-2015 [facility] N N179 ACUTE 10-04-2015 [facility] KIDNEY [facility] FAILURE UNSPECIFIED [id number] ADVERSE 10-04-2015 [facility] EFFECT [facility] SYS ANTIBIOTICS INIT ENCNTR Z681 BODY MASS 10-04-2015 [facility] INDEX BMI [facility] 19 OR LESS ADULT M549 DORSALGIA 09-29-2015 [facility] UNSPECIFIED [facility] INC [id number] PAIN IN 09-01-2015 [facility] UNSPECIFIED [facility] SHOULDER INC M546 PAIN IN 08-24-2015 [facility] R937 ABN FIND ON 08-24-2015 [facility] MUSCULOSKEL ETAL SYS M5126 OTH 08-15-2015 [facility] DIS[facility] DISPLACEMEN T LUMBAR RGN R200 ANESTHESIA 08-15-2015 [facility] 7242 LUMBAGO 04-02-2015 [facility], [facility] 47568 DEGEN 03-28-2015 [facility] LUMBAR/LUMB N EMERGENCY OSACRAL PHYS INTERVERTEB RAL DISC 7244 THORACIC/KAHTRINE 03-28-2015 [facility] [place] MBOSACRAL RADIOLOGY NEURITIS/RA DICULITIS UNSPEC 8472 LUMBAR 03-28-2015 [facility] SPR[facility] AND N EMERGENCY STRAIN PHYS E9270 OVEREXERTIO 03-28-2015 [facility] N FROM N EMERGENCY SUDDEN PHYS STRENUOUS MOVEMENT 75184 TRICHOMONAL 07-12-2014 [facility]DE MD VULVOVAGINI TIS 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 6272 SYMPTOMATIC 07-12-2014 [facility]DE MD MENOPAUSAL/ FEMALE CLIMACTERIC STATES 43749 UNS PROLAPS 07-06-2014 [facility] Mock VAG SINGH [...] 07 08 14 7 00 RO Ac GA 05 -1 -0 .0 00 SS ti [...] 07 07 16 8 00 CA Ac GA 05 -0 -2 .0 00 RL ti [...] S 20 MG TA BL ET GA 00 06 07 30 30 00 CA [...] 06 07 14 7 00 RO Ac GA 05 -2 -2 .0 00 SS ti EN 40 8- 1- 00 01 ve OR [address] PH 91 17 17 82 UG IN 3 66 S -N AL OX ON 8- 2 MG SL GA 00 06 07 90 30 00 CA [...] LT Y TA CA BL RE ET GA 00 05 [address] [...] Y 10 CA RE MG TA B GA 00 04 05 [address] [...] 03 03 10 5 00 RO Ac GA 05 -0 -2 .0 00 SS ti [...] UG 0 S MG TA BL ET GA 00 02 02 30 30 00 CA [...] UG 0 S MG TA BL ET GA 00 12 01 30 30 00 CA [...] 90 16 [address] OMRA UG SY S LA TE 10 MG [...] Procedure [place] [address] [facility] [place] [facility] KE[facility] HEAD/BRAI 6 RADIOLOGY N W/[place] [address] [facility] [place] [facility] ABDOMEN & 6 [...] METH P DAY 8-14 DRUG CL DRUG 70995 [facility] SCREENING 6 [facility] INC INC BENZODIAZ EPINES 1-12 DRUG TST G0477 [facility] PRESUMP;C 6 [facility] PBL BEING INC INC READ DC OPT OBV ONLY DRUG 57509 [facility] SCREENING 6 [facility] OPIOIDS INC INC & OPIATE ANALOGS 5/MORE DRUG TST G0477 [facility] PRESUMP;C 6 [facility] PBL BEING INC INC READ DC OPT OBV ONLY HIT ABX S9502 [facility], [facility], ANTIVIRAL 6 INC INC /ANTIFUNG AL; Q8 HRS TOOL AND DIE MAKER/DESIGNER HIT ABX S9502 [facility], [facility], ANTIVIRAL 6 INC INC /ANTIFUNG AL; Q8 HRS TOOL AND DIE MAKER/DESIGNER HIT ABX S9502 [facility], AMER[facility], ANTIVIRAL 6 INC INC /ANTIFUNG AL; Q8 HRS TOOL AND DIE MAKER/DESIGNER HIT ABX S9502 [facility], [facility], ANTIVIRAL 6 INC INC /ANTIFUNG AL; Q8 HRS TOOL AND DIE MAKER/DESIGNER INJ J2543 [facility], [facility], PIPERACIL 6 INC INC HERMILO SOD/TAZOB ACTAM SOD 1 G/0.125 G COMPREHEN 65390 [facility] SIVE 6 [facility] METABOLIC INC INC PANEL COLLECTIO 89109 B[facility] N VENOUS 6 [facility] BLOOD INC INC VENIPUNCT URE SEDIMENTA 73136 B[facility] TION RATE 6 [facility] RBC INC INC NON-AUTOM ATED BLOOD 05390 [facility] COUNT 6 [facility] COMPLETE INC INC AUTO&AUTO DIFRNTL WBC C-REACTIV 02226 [facility] E PROTEIN 6 [facility] INC INC DIRECT G0299 [facility] RN 6 [facility] AGENCY AGENCY SPICE SET EA 15 MIN INJ J2543 [facility], AMERIMED, PIPERACIL 6 INC INC HERMILO SOD/TAZOB ACTAM SOD 1 G/0.125 G INJECTION J1642 [facility], [facility], HEPARIN 6 INC INC SODIUM PER 10 UNITS HIT ABX S9502 [facility], [facility], ANTIVIRAL 6 INC INC /ANTIFUNG AL; Q8 HRS TOOL AND DIE MAKER/DESIGNER HIT ABX S9502 [facility], [facility], ANTIVIRAL 6 INC INC /ANTIFUNG AL; Q8 HRS TOOL AND DIE MAKER/DESIGNER DIRECT G0299 [facility] RN 6 [facility] AGENCY AGENCY SPICE SET EA 15 MIN [...] 6 INC INC /ANTIFUNG AL; Q8 HRS TOOL AND DIE MAKER/DESIGNER HIT ABX S9502 AMER[facility], AMERIMED, ANTIVIRAL 6 INC INC /ANTIFUNG AL; Q8 HRS TOOL AND DIE MAKER/DESIGNER HIT ABX S9502 [employer], AMERIMED, ANTIVIRAL 6 INC INC /ANTIFUNG AL; Q8 HRS TOOL AND DIE MAKER/DESIGNER HIT ABX S9502 AMERIM[employer], AMERIMED, ANTIVIRAL 6 INC INC /ANTIFUNG AL; Q8 HRS TOOL AND DIE MAKER/DESIGNER HIT ABX S9502 [facility], AMERIMED, ANTIVIRAL 6 INC INC /ANTIFUNG AL; Q8 HRS TOOL AND DIE MAKER/DESIGNER INJECTION J1642 [facility], [facility], HEPARIN 6 INC INC SODIUM PER 10 UNITS INJ J2543 [employer], [employer], PIPERACIL 6 INC INC HERMILO SOD/TAZOB ACTAM SOD 1 G/0.125 G HIT ABX S9502 [facility], [facility], ANTIVIRAL 6 INC INC /ANTIFUNG AL; Q8 HRS TOOL AND DIE MAKER/DESIGNER COLLECTIO 34223 [facility] N VENOUS 6 [facility] BLOOD INC INC VENIPUNCT URE BASIC 15792 B[facility] METABOLIC 6 [facility] PANEL INC INC CALCIUM TOTAL DRUG 52266 [facility] SCREEN 6 [facility] QUANTITAT INC INC JUAN PABLO VANCOMYCI N SEDIMENTA 29143 B[facility] TION RATE 6 [facility] RBC INC INC NON-AUTOM ATED BLOOD 42871 [facility] COUNT 6 [facility] COMPLETE INC INC AUTO&AUTO DIFRNTL WBC HIT ABX S9501 [facility], [facility], ANTIVIRAL 6 INC INC /ANTIFUNG AL TX; Q12 HRS LEVI C-REACTIV 29663 [facility] E PROTEIN 6 [facility] INC INC DIRECT G0299 ARELI ESPINOZA RN 6 [facility] HEALTH/HO AGENCY AGENCY SPICE SET EA 15 MIN HIT ABX S9501 [facility], AMER[facility], ANTIVIRAL 6 INC INC /ANTIFUNG AL TX; Q12 HRS LEVI HIT ABX S9502 [employer], AMER[facility], ANTIVIRAL 6 INC INC /ANTIFUNG AL; Q8 HRS TOOL AND DIE MAKER/DESIGNER HIT ABX S9502 [employer], AMER[employer], ANTIVIRAL 6 INC INC /ANTIFUNG AL; Q8 HRS TOOL AND DIE MAKER/DESIGNER HIT ABX S9501 [employer], AMER[employer], ANTIVIRAL 6 INC INC /ANTIFUNG AL TX; Q12 HRS LEVI HIT ABX S9501 [facility], AMERIMED, ANTIVIRAL 6 INC INC /ANTIFUNG AL TX; Q12 HRS LEVI HIT ABX S9502 [facility], AMERIMED, ANTIVIRAL 6 INC INC /ANTIFUNG AL; Q8 HRS TOOL AND DIE MAKER/DESIGNER DRUG 16125 [facility] SCREEN 6 [facility] QUANTITAT INC INC JUAN PABLO VANCOMYCI N BASIC 83333 B[facility] METABOLIC 6 [facility] PANEL INC INC CALCIUM TOTAL COLLECTIO 08621 [facility] N VENOUS 6 [facility] BLOOD INC INC VENIPUNCT URE HIT ABX S9502 AMERIMED, AMERIMED, ANTIVIRAL 6 INC INC /ANTIFUNG AL; Q8 HRS TOOL AND DIE MAKER/DESIGNER HIT ABX S9501 [employer], AMER[employer], ANTIVIRAL 6 INC INC /ANTIFUNG AL TX; Q12 HRS LEVI HIT ABX S9501 [employer], AMER[employer], ANTIVIRAL 6 INC INC /ANTIFUNG AL TX; Q12 HRS LEVI HIT ABX S9502 [employer], AMERIMED, ANTIVIRAL 6 INC INC /ANTIFUNG AL; Q8 HRS TOOL AND DIE MAKER/DESIGNER HIT ABX S9502 [employer], [employer], ANTIVIRAL 6 INC INC /ANTIFUNG AL; Q8 HRS TOOL AND DIE MAKER/[place] [address] [facility] HEAD/BRAI 6 MEDICAL MARY N W/O IMAGING CONTRAST ASS MATERIAL INJECTION J2405 [facility] 6 [facility] ONDANSETR INC INC ON HCL PER 1 MG COMPREHEN 61005 [facility] SIVE 6 [facility] METABOLIC INC INC PANEL THERAPEUT 44602 [facility] IC 6 [facility] INJECTION INC INC IV PUSH EACH NEW DRUG BLOOD 84351 [facility] COUNT 6 [facility] COMPLETE INC INC AUTO&AUTO DIFRNTL WBC HIT ABX S9501 [facility], AMERIM[facility], ANTIVIRAL 6 INC INC /ANTIFUNG AL TX; Q12 HRS LEVI THER 58183 [facility] PROPH/DX 6 [facility] NJX IV INC INC PUSH SINGLE/1S T SBST/DRUG C-REACTIV 05831 [facility] E PROTEIN 6 [facility] INC INC THERAPEUT 49638 [facility] IC 6 [facility] PROPHYLAC INC INC TIC/DX INJECTION SUBQ/IM HIT ABX S9501 [facility], AMER[facility], ANTIVIRAL 6 INC INC /ANTIFUNG AL TX; Q12 HRS LEVI SEDIMENTA 43636 [facility] TION RATE 6 [facility] RBC INC INC NON-AUTOM ATED BLOOD 44870 [facility] COUNT 6 [facility] COMPLETE INC INC AUTO&AUTO DIFRNTL WBC DIRECT G0299 ARELI [place] SNS RN 6 HOME [facility] HEALTH/HO AGENCY AGENCY SPICE SET EA 15 MIN COLLECTIO 31960 [facility] N VENOUS 6 [facility] BLOOD INC INC VENIPUNCT URE HIT ABX S9502 AMERIM[facility], AMERIMED, ANTIVIRAL 6 INC INC /ANTIFUNG AL; Q8 HRS TOOL AND DIE MAKER/DESIGNER BASIC 49249 [facility] METABOLIC 6 [facility] PANEL INC INC CALCIUM TOTAL DRUG 23169 [facility] SCREEN 6 [facility] QUANTITAT INC INC JUAN PABLO VANCOMYCI N HIT ABX S9502 AMERIMED, AMERIMED, ANTIVIRAL 6 INC INC /ANTIFUNG AL; Q8 HRS TOOL AND DIE MAKER/DESIGNER INJECTION J3370 AMER[facility]ED, AMERIMED, 6 INC INC [...] 6 INC INC /ANTIFUNG AL; Q8 HRS TOOL AND DIE MAKER/DESIGNER HIT ABX S9502 AMERIMED, AMERIMED, ANTIVIRAL 6 INC INC /ANTIFUNG AL; Q8 HRS TOOL AND DIE MAKER/DESIGNER HIT ABX S9501 [employer], AMERIMED, ANTIVIRAL 6 INC INC /ANTIFUNG AL TX; Q12 HRS LEVI HIT ABX S9501 [facility], AMERIMED, ANTIVIRAL 6 INC INC /ANTIFUNG AL TX; Q12 HRS LEVI HIT ABX S9502 AMERIMED, AMERIMED, ANTIVIRAL 6 INC INC /ANTIFUNG AL; Q8 HRS TOOL AND DIE MAKER/DESIGNER HIT ABX S9502 AMER[employer], AMERIMED, ANTIVIRAL 6 INC INC /ANTIFUNG AL; Q8 HRS TOOL AND DIE MAKER/DESIGNER INJECTION J3370 AMERIMED, AMERIMED, 6 INC INC [...] 6 INC INC /ANTIFUNG AL; Q8 HRS TOOL AND DIE MAKER/DESIGNER HIT ABX S9502 AMERIMED, AMERIMED, ANTIVIRAL 6 INC INC /ANTIFUNG AL; Q8 HRS TOOL AND DIE MAKER/DESIGNER DRUG 05216 [facility] SCREEN 6 [facility] QUANTITAT INC INC JUAN PABLO VANCOMYCI N BASIC 83440 [facility] METABOLIC 6 [facility] PANEL INC INC CALCIUM TOTAL COLLECTIO 38993 B[facility] N VENOUS 6 [facility] BLOOD INC INC VENIPUNCT URE DIRECT G0299 ARELI ESPINOZA RN 6 HOME [facility] HEALTH/HO AGENCY AGENCY SPICE SET EA 15 MIN C-REACTIV 44975 [facility] E PROTEIN 6 [facility] INC INC BLOOD 88609 B[facility] COUNT 6 [facility] COMPLETE INC INC AUTO&AUTO DIFRNTL WBC SEDIMENTA 65441 [facility] TION RATE 6 [facility] RBC INC INC NON-AUTOM ATED HIT ABX S9502 AMERIMED, AMERIMED, ANTIVIRAL 6 INC INC /ANTIFUNG AL; Q8 HRS TOOL AND DIE MAKER/DESIGNER HIT ABX S9502 AMERIMED, AMERIMED, ANTIVIRAL 6 INC INC /ANTIFUNG AL; Q8 HRS TOOL AND DIE MAKER/DESIGNER HIT ABX S9502 AMERIMED, AMERIMED, ANTIVIRAL 6 INC INC /ANTIFUNG AL; Q8 HRS TOOL AND DIE MAKER/DESIGNER HIT ABX S9502 AMER[employer], AMERIMED, ANTIVIRAL 6 INC INC /ANTIFUNG AL; Q8 HRS TOOL AND DIE MAKER/DESIGNER INJECTION J1642 [facility], AMERIMED, HEPARIN 6 INC INC SODIUM PER 10 UNITS INJECTION J3370 AMERIMED, AMERIMED, 6 INC INC VANCOMYCI N HCL 500 MG INJ J2543 [facility], AMERIMED, PIPERACIL 6 INC INC HERMILO SOD/TAZOB ACTAM SOD 1 G/0.125 G HIT ABX S9502 AMER[facility], AMERIMED, ANTIVIRAL 6 INC INC /ANTIFUNG AL; Q8 HRS TOOL AND DIE MAKER/DESIGNER HIT ABX S9502 AMER[facility], AMERIMED, ANTIVIRAL 6 INC INC /ANTIFUNG AL; Q8 HRS TOOL AND DIE MAKER/DESIGNER DIRECT G0299 ARELI [place] SNS RN 6 HOME [facility] HEALTH HEALTH/HO AGENCY AGENCY SPICE SET EA 15 MIN C-REACTIV 10453 [facility] E PROTEIN 6 [facility] INC INC SEDIMENTA 59268 [facility] TION RATE 6 [facility] RBC INC INC NON-AUTOM ATED BLOOD 39844 [facility] COUNT 6 [facility] COMPLETE INC INC AUTO&AUTO DIFRNTL WBC HIT ABX S9502 AMERIMED, AMERIMED, ANTIVIRAL 6 INC INC /ANTIFUNG AL; Q8 HRS TOOL AND DIE MAKER/DESIGNER BASIC 89788 [facility] METABOLIC 6 [facility] PANEL INC INC CALCIUM TOTAL DRUG 92007 [facility] SCREEN 6 [facility] QUANTITAT INC INC JUAN PABLO VANCOMYCI N HIT ABX S9502 AMERIMED, AMERIMED, ANTIVIRAL 6 INC INC /ANTIFUNG AL; Q8 HRS TOOL AND DIE MAKER/DESIGNER DRUG TST G0477 [facility] PRESUMP;C 6 [facility] PBL BEING INC INC READ DC OPT OBV ONLY HIT ABX S9502 AMERIMED, AMERIMED, ANTIVIRAL 6 INC INC /ANTIFUNG AL; Q8 HRS TOOL AND DIE MAKER/DESIGNER HIT ABX S9502 AMER[facility], AMERIMED, ANTIVIRAL 6 INC INC /ANTIFUNG AL; Q8 HRS TOOL AND DIE MAKER/DESIGNER INJECTION J3370 AMERIMED, AMERIMED, 6 INC INC VANCOMYCI N HCL 500 MG INJECTION J1642 AMER[facility], AMERIMED, HEPARIN 6 INC INC SODIUM PER 10 UNITS DIRECT G0299 ARELI ESPINOZA RN 6 HOME [facility] HEALTH HEALTH/HO AGENCY AGENCY SPICE SET EA 15 MIN HOSPITAL [address] [facility] DISCHARGE 6 ARTURO ARTURO DAY MANAGEMEN T 30 MIN/< INJ J2543 [facility], AMERIMED, PIPERACIL 6 INC INC HERMILO SOD/TAZOB ACTAM SOD 1 G/0.125 G SBSQ 04779 [facility] 6 SENA SENA CARE/DAY 25 MINUTES SBSQ 66082 [facility] 6 SENA SENA CARE/DAY 25 MINUTES SBSQ 42332 [facility] 6 ARTURO ARTURO CARE/DAY 25 MINUTES SBSQ 33966 [facility] 6 SENA SENA CARE/DAY 25 MINUTES INTRODUCT [id number] [facility] ION OTH [address] [place] [address] ANTI-INFE CTIVE PERIPH VEIN PERQ INSERTION [id number] [facility] INFUSION [address] [place] [address] DEVICE RT BASILIC VEIN PERQ EXCISION [id number] [facility] THORACIC [address] [place] [address] [place] [address] [facility] [place] [facility] GUIDANCE 6 RADIOLOGY SAIMA NEEDLE PLACEMENT MODERATE 71318 [facility] [place] SEDATJ 6 RADIOLOGY SAIM[facility] SAME PHYS/QHP 5/>YRS INIT 30 MIN PRQ ASPIR 49796 [facility] [place] [facility] 6 RADIOLOGY SAIMA PULPOSUS/ INTERVERT EBRAL DISC/PVRT TISS ULTRASONO [id number] [address] [facility] HEART WITH AORTA TRANSESOP HAGEAL SBSQ 23376 [facility] 6 SENA SENA CARE/DAY 35 MINUTES INITIAL 84605 [facility] 6 SENA SENA CARE/DAY 70 MINUTES RADEX 96510 [facility] SPINE 6 [place] LUMBOSACR ORTHOPAED AL 2/3 [facility] VIEWS COLLECTIO 87962 [facility] N VENOUS 5 [facility] BLOOD INC INC VENIPUNCT URE BASIC 89359 [facility] METABOLIC 5 [facility] PANEL INC INC CALCIUM TOTAL BLOOD 80084 [facility] COUNT 5 [facility] COMPLETE INC INC AUTO&AUTO DIFRNTL WBC DRUG 04871 [facility] SCREEN 5 [facility] QUANT INC INC AMPHETAMI CHEMO 1 OR 2 BLOOD 76557 [facility] COUNT 5 [facility] COMPLETE INC INC AUTO&AUTO DIFRNTL WBC SEDIMENTA 21839 [facility] TION RATE 5 [facility] RBC INC INC NON-AUTOM ATED C-REACTIV 04606 [facility] E PROTEIN 5 [facility] INC INC COLLECTIO 31657 [facility] N VENOUS 5 [facility] BLOOD INC INC VENIPUNCT URE COMPREHEN 93793 [facility] SIVE 5 [facility] METABOLIC INC INC PANEL MRI 29141 B[facility] SPINAL 5 [facility] CANAL INC INC THORACIC W/O CONTRAST MATRL MRI 59690 B[facility] SPINAL 5 [facility] CANAL INC INC LUMBAR W/O CONTRAST MATERIAL 3D 89686 B[facility] RENDERING 5 [facility] W/INTERP INC INC & POSTPROCE SS SUPERVISI ON RADEX 02630 [facility] [place] TEE SPINE 5 RADIOLOGY RHO LUMBOSACR AL 2/3 VIEWS COMPLEX 57761 [facility] UROFLOMET 4 AMMON [facility]BR[facility] RY COMPLX 13399 [facility] CYSTOMETR 4 AMMON [facility]BR[facility] O W/VOID PRESS & URETHRAL PROFIL 56284 [facility] TRANSVAGI 4 [facility] IADNA 25643 [facility] NEISSERIA 4 [facility] GONORRHOE AE DIRECT PROBE TQ BLOOD 41341 [facility] OCCULT 4 [facility] PEROXIDAS E ACTV QUAL FECES 1-3 SPEC CULTURE 15885 [facility] CHLAMYDIA 4 [facility] ANY SOURCE URINLS 61328 [facility] DIP 4 [facility] STICK/TAB LET REAGNT NON-AUTO MICRSCPY Encounters Encounter Start End Date Code Location Performer Type Date OFFICE 17267 [facility] 7 7 HEALTH T VISIT SOLUTIONS 25 IN MINUTES [facility] BLAZE - 6 6 [facility] OFFICE 43988 [facility] 6 6 [place] [address] URGENT MINUTES [facility] BLAZE [facility] 6 6 [facility] BLAZE - 6 6 [facility] BLAZE - 6 6 [facility] BLAZE - 6 6 [facility] - 6 6 [facility] OFFICE 40795 [facility] 6 6 T VISIT INFECTIOU 25 S DISEASE [facility] BLAZE - 6 6 [facility] OFF[facility] 54547 [facility] 6 6 T VISIT INFECTIOU 25 S DISEASE [facility] BLAZE - 6 6 [facility] OUTPATIEN INC T HOME [facility], 6 6 HOME INPATIENT HEALTH [facility] BLAZE [facility] 6 6 [facility] OUTPATIEN INC T EMERGENCY 00037 [facility] 6 6 [facility] DEPARTMEN [facility] T VISIT MODERATE SEVERITY HOSPITAL BLAZE - 6 6 [facility] OUTPATIEN INC EMERGENCY 98735 LAUREN MARTINEZ DEPT 6 6 PHYSICIAN [facility]ENIN VISIT [facility] HIGH SEVERITY& THREAT [facility] BLAZE - 6 6 [facility] OUTPATIEN INC T EMERGENCY 70694 BLAZE 6 6 [facility] DEPARTMEN [facility] T VISIT MODERATE SEVERITY EMERGENCY 80736 LAUR[facility] HALE 6 6 PH[facility]ICIAN [facility] T VISIT HIGH/URGE NT SEVERITY HOME [facility], 6 6 HOME INPATIENT HEALTH [facility] BLAZE - 6 6 [facility] OUTPATIEN INC HOSPITAL BLAZE [facility] 6 6 [facility] OUTPATIEN [facility] HOME [facility], 6 6 HOME INPATIENT HEALTH [facility] [place] [address] 6 HOSPITAL INPATIENT OFFICE 74056 [facility] OUTPATIEN 6 6 [place] T VISIT ORTHOPAED 15 [facility] MINUTES HOSPITAL BLAZE - 5 5 [facility] OUTPATIEN INC [facility]OSPITAL BLAZE - 5 5 [facility] OUTPATIEN INC T OFFICE 77658 [facility] JUAN OUTPATIEN 5 5 PHYSICIAN LEN[place] T VISIT S GROUP 10 MINUTES OFFICE 68166 [facility] CONSULTAT 5 5 [place] ION ORTHOPAED NEW/ESTAB [facility] PATIENT 60 MIN OFFICE 73594 [facility] JUAN OUTPATIEN 5 5 PHYSICIAN [place]EN[place] T VISIT S GROUP 10 MINUTES HOSPITAL BLAZE - 5 5 [facility] OUTPATIEN [facility] HOSPITAL BLAZE - 5 5 [facility] - 5 5 [facility]IEN [facility] T OFFICE [id number] [facility] JUAN OUTPATIEN 5 5 PHYSICIAN LENIN T VISIT S GROUP 10 MINUTES EMERGENCY [id number] LAUREN MCNEILL 5 5 PHYSICIAN DEPARTMEN S, PLLC T VISIT HIGH/URGE NT SEVERITY EMERGENCY [id number] [facility] BLAZE 5 5 MALATHI [facility] DEPARTMEN EMERGENCY T VISIT PHYS HIGH/URGE NT SEVERITY OFFICE [id number] [facility] OUT[facility] 4 4 [facility] T VISIT 15 MINUTES HOSPITAL [facility]ZE - 4 4 [facility] T INITIAL [id number] [facility] PREVENTIV 4 4 [facility] E MEDICINE NEW PATIENT [id number] EMERGENCY [id number] [facility] JUAN 4 4 MALATHI LENIN DEPARTMEN EMERGENCY T VISIT PHYS MODERATE SEVERITY
--- OUTSIDE RECORDS SUMMARY | 2017-05-06 19:30 | External Medical Summary Rpt ---
Demographics Preferred Language Khmer Marital Status Unknown Scientologist Affiliation Unknown Race Unknown Ethnic Group Unknown Author Author AMELIA Address Unknown Phone Immunization No patient found.
--- OUTSIDE RECORDS SUMMARY | 2017-05-06 19:30 | External Medical Summary Rpt ---
Demographics Preferred Language Hungarian Marital Status Unknown Mormonism Affiliation Unknown Race Unknown Ethnic Group Unknown Author Author AMELIA Address Unknown Phone Immunization No patient found.
--- OUTSIDE RECORDS SUMMARY | 2017-05-06 19:30 | External Medical Summary Rpt ---
Author Author , AMELIA CISNEROS Address Unknown Phone [email or web address] Care Team Providers Care Credit Risk Analytics Manager Name Role Phone [employer], Unavailable Unavailable [employer], Unavailable Unavailable [employer] [facility] AND, [place] AND Unavailable Unavailable [facility], Unavailable Unavailable [facility] [place] [...] NAN MASON CHARITO, MASON CHARITO Unavailable Unavailable [facility] Un[facility], [facility] ZORAIDA ARTURO, ZORAIDA Unavailable Unavailable [facility] ZORAIDA ARTURO, ZORAIDA Unavailable Unavailable [facility] Unavailable Unavailable DISEASE, HIALEAH INFECTIOUS DISEASE [facility] Unavailable Unavailable URGENT TREAT, [facility] Unavailable [facility], [facility] SCALF KEITH, SCALF KEITH Unavailable Unavailable SOTINGEANU MARY, Unavailable Unavailable SOTINGEANU MARY [facility] Unavailable Unavailable [facility], [facility], Unavailable Unavailable [facility] Unavailable Unavailable [facility], [facility] Unavailable Unavailable AGENCY, [facility] Purpose Continuity of Care Document - 05-18-2014 through 2016 Problems Code Diagnosis DOS Provider Status K219 GASTRO-ESOP 04-05-2017 [facility] WITHOUT IN ESOPHAGITIS K5900 CONSTIPATIO 04-05-2017 [facility] UNSPECIFIED SOLUTIONS IN R0781 PLEURODYNIA 04-05-2017 [facility] IN R600 LOCALIZED 04-05-2017 [facility] IN Z1231 ENCOUNTER 04-05-2017 [employer] 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 UNSPECIFIED AGENCY Z452 ENCOUNTER 11-03-2015 [facility] HOME ADJUSTMENT& HEALTH MGMT AGENCY VASCULAR ACCESS DEVICE Z720 TOBACCO USE 11-03-2015 [facility] HOME HEALTH AGENCY I10 ESSENTIAL 10-28-2015 [facility]YP[facility]EN[facility]O PLL[facility] N I159 SECONDARY 10-28-2015 [facility] N INC UNSPECIFIED R51 HEADACHE 10-28-2015 [facility] [id number] MIGRAINE 10-27-2015 [facility] W/[facility] NOT INTRACT PLLC W/O STAT MIGRAIN M129 ARTHROPATHY 10-07-2015 ZORAIDA ARTURO UNSPECIFIED M869 OSTEOMYELIT 10-07-2015 ZORAIDA ARTURO IS UNSPECIFIED 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 R200 ANESTHESIA 08-15-2015 [facility] 7242 LUMBAGO 04-02-2015 [facility] PHYSICIANS[facility] 50595 DEGEN 03-28-2015 [facility] LUMBAR/LUMB N EMERGENCY OSACRAL PHYS INTERVERTEB RAL DISC 7244 THORACIC/KATHRINE 03-28-2015 [facility] [place] [facility] NEURITIS/RA DICULITIS UNSPEC 8472 LUMBAR 03-28-2015 [facility] SPRAIN AND N EMERGENCY STRAIN PHYS E9270 OVEREXERTIO 03-28-2015 [facility] N FROM N EMERGENCY SUDDEN PHYS STRENUOUS MOVEMENT 01354 TRICHOMONAL 07-12-2014 [facility] VERDE MD VULVOVAGINI TIS 96876 DETRUSOR 07-12-2014 [facility] Mock SPHINCTER AMMON CHASE DYSSYNERGIA 6272 SYMPTOMATIC 07-12-2014 [facility]DE MD MENOPAUSAL/ FEMALE CLIMACTERIC STATES 27276 UNS PROLAPS 07-06-2014 [facility]GR[facility] Mock VAG SINGH [...] N EMERGENCY OF FOOT PHYS EXCEPT TOES Medications Na ND Rx Da Fi Fi Am Da Di Ph RX Ph St me C No te ll ll ou ys ag ar # ys at rm s nt no ma ic us Or Da si cy ia de te s n re d BU 00 07 08 14 7 00 RO Ac MI 05 -1 -0 .0 00 SS ti [...] 07 07 16 8 00 CA Ac MI 05 -0 -2 .0 00 RL ti [...] 10 17 17 68 80 5 84 0 UG MG S TA BL ET [...] NE 21 17 [address] HECK UG L S 20 MG TA BL ET MI 00 06 07 30 30 00 CA [...] 06 07 14 7 00 RO Ac MI 05 -2 -2 .0 00 SS ti EN 40 8- 1- 00 01 ve OR [address] PH 91 17 17 82 UG IN 3 66 S -N AL OX ON 8- 2 MG SL MI 00 06 07 90 30 00 CA [...] LT Y TA CA BL RE ET MI 00 05 [address] [...] ve PI [address] TYLER 80 17 17 60 UG 5 53 BE SP SY EC LA IA TE LT Y 10 CA RE MG TA B MI 00 04 05 [address] [...] ve TI [address] SCOTT 21 17 17 60 UG 0 55 [...] 03 03 10 5 00 RO Ac MI 05 -0 -2 .0 00 SS ti [...] UG 0 S MG TA BL ET MI 00 02 02 30 30 00 CA [...] NE 90 17 [address] BE UG SY S LA TE 10 MG TA B PA 00 02 02 30 30 00 CA Ac RO 37 -0 -2 .0 00 RL ti XE 87 3- 4- 00 00 IS ve TI 00 20 20 76 LE NE 21 17 [address] HC UG L S 20 MG TA BL ET GA 68 01 02 90 30 00 CA Ac BA 46 -1 -0 .0 00 RL ti PE 20 0- 3- 00 00 IS ve NT 12 20 20 76 LE IN 60 17 [address] 60 UG 0 S MG TA BL ET MI 00 12 30 30 00 CA Ac EM 04 -2 -2 .0 00 RL ti AR 61 9- 0- 00 00 IS ve IN 10 20 20 76 LE 08 16 [address] 3 UG MG S TA BL ET AM 67 12 30 30 00 CA Ac LO 87 -2 -2 .0 00 RL ti DI 70 9- 0- 00 00 IS ve PI 19 20 20 76 LE NE 90 16 [address] MORA UG SY S LA TE 10 MG TA B GA 68 12 90 30 00 CA Ac BA 46 -1 -0 .0 00 RL ti PE 20 2- 9- 00 00 IS ve NT 12 20 20 76 LE IN 60 16 [address] 60 UG 0 S MG TA BL ET Procedures Procedure [place] [address] [facility] [place] [facility] HEAD/BRAI 6 RADIOLOGY N W/[place] [address] [facility] [place] [facility] ABDOMEN & 6 RADIOLOGY [...] OPT OBV ONLY DRUG TEST G0480 [facility] DEFINITV [address] [address] [address] ID INC INC METH P DAY 1-7 DRUG CL DRUG TEST G0481 [facility] DEFINITV [address] ID INC INC METH P DAY 8-14 DRUG CL DRUG TST G0477 [facility] PRESUMP;C 6 [facility] PBL BEING INC INC READ DC OPT OBV ONLY DRUG 57375 [facility] SCREENING 6 [facility] OPIOIDS INC INC & OPIATE ANALOGS 5/MORE DRUG 40879 [facility] SCREENING 6 [facility] INC INC BENZODIAZ EPINES 1-12 DRUG TST G0477 [facility] H[facility] PRESUMP;C 6 [facility] PBL BEING INC INC READ DC OPT OBV ONLY HIT ABX S9502 [facility], [facility], ANTIVIRAL 6 INC INC /ANTIFUNG AL; Q8 HRS SISAL PICKER HIT ABX S9502 [facility], [facility], ANTIVIRAL 6 INC INC /ANTIFUNG AL; Q8 HRS SISAL PICKER HIT ABX S9502 [facility], [facility], ANTIVIRAL 6 INC INC /ANTIFUNG AL; Q8 HRS SISAL PICKER HIT ABX S9502 [facility], [facility], ANTIVIRAL 6 INC INC /ANTIFUNG AL; Q8 HRS SISAL PICKER INJ J2543 [facility], [facility], PIPERACIL 6 INC INC HERMILO SOD/TAZOB ACTAM SOD 1 G/0.125 G DIRECT G0299 [facility] RN 6 HOME HOME HOME HEALTH HEALTH HEALTH/HO AGENCY AGENCY SPICE SET EA 15 MIN BLOOD 62940 [facility] COUNT 6 [facility] COMPLETE INC INC AUTO&AUTO DIFRNTL WBC COMPREHEN 02876 [facility] SIVE 6 [facility] METABOLIC INC INC PANEL COLLECTIO 15974 BLAZECORRINE THAKUR N VENOUS 6 [facility] BLOOD INC INC VENIPUNCT URE C-REACTIV 66576 BLAZECORRINE HAMMONDON E PROTEIN 6 [facility] INC INC SEDIMENTA 23103 [facility] TION RATE 6 [facility] RBC INC INC NON-AUTOM ATED INJECTION J1642 [facility], [facility], HEPARIN 6 INC INC SODIUM PER 10 UNITS HIT ABX S9502 [facility], [facility], ANTIVIRAL 6 INC INC /ANTIFUNG AL; Q8 HRS SISAL PICKER INJ J2543 [facility], [facility], PIPERACIL 6 INC INC HERMILO SOD/TAZOB ACTAM SOD 1 G/0.125 G INJ J2543 [facility], [facility], PIPERACIL 6 INC INC HERMILO SOD/TAZOB ACTAM SOD 1 G/0.125 G DIRECT G0299 [facility] SINGLETON SNS RN 6 HOME HOME HOME HEALTH HEALTH HEALTH/HO AGENCY AGENCY SPICE SET EA 15 MIN HIT ABX S9502 [facility], [facility], ANTIVIRAL 6 INC INC /ANTIFUNG AL; Q8 HRS SISAL PICKER DRUG TST G0477 [facility] PRESUMP;C 6 [facility] PBL BEING INC INC READ DC OPT OBV ONLY INJ J2543 [facility], AMERIMED, PIPERACIL 6 INC INC HERMILO SOD/TAZOB ACTAM SOD 1 G/0.125 G HIT ABX S9502 [facility], [facility], ANTIVIRAL 6 INC INC /ANTIFUNG AL; Q8 HRS SISAL PICKER HIT ABX S9502 [facility], AMER[facility]ED, ANTIVIRAL 6 INC INC /ANTIFUNG AL; Q8 HRS SISAL PICKER HIT ABX S9502 [facility], AMERIMED, ANTIVIRAL 6 INC INC /ANTIFUNG AL; Q8 HRS SISAL PICKER HIT ABX S9502 [facility], AMERIMED, ANTIVIRAL 6 INC INC /ANTIFUNG AL; Q8 HRS SISAL PICKER HIT ABX S9502 [facility], AMERIMED, ANTIVIRAL 6 INC INC /ANTIFUNG AL; Q8 HRS SISAL PICKER INJECTION J1642 [facility], AMERIMED, HEPARIN 6 INC INC SODIUM PER 10 UNITS INJ J2543 [facility], AMER[facility]ED, PIPERACIL 6 INC INC HERMILO SOD/TAZOB ACTAM SOD 1 G/0.125 G DIRECT G0299 [facility] RN 6 HOME HOME HOME HEALTH HEALTH HEALTH/HO AGENCY AGENCY SPICE SET EA 15 MIN HIT ABX S9502 [facility], AMERIMED, ANTIVIRAL 6 INC INC /ANTIFUNG AL; Q8 HRS SISAL PICKER BLOOD 41793 [facility] COUNT 6 [facility] COMPLETE INC INC AUTO&AUTO DIFRNTL WBC SEDIMENTA 63973 [facility] TION RATE 6 [facility] RBC INC INC NON-AUTOM ATED HIT ABX S9501 [facility], [facility], ANTIVIRAL 6 INC INC /ANTIFUNG AL TX; Q12 HRS LEVI C-REACTIV 51396 [facility] E PROTEIN 6 [facility] INC INC COLLECTIO 03723 B[facility] N VENOUS 6 [facility] BLOOD INC INC VENIPUNCT URE BASIC 14285 B[facility] METABOLIC 6 [facility] PANEL INC INC CALCIUM TOTAL DRUG 03215 [facility] SCREEN 6 [facility] QUANTITAT INC INC JUAN PABLO VANCOMYCI N HIT ABX S9501 [facility], [facility], ANTIVIRAL 6 INC INC /ANTIFUNG AL TX; Q12 HRS LEVI HIT ABX S9502 [facility], [facility], ANTIVIRAL 6 INC INC /ANTIFUNG AL; Q8 HRS SISAL PICKER HIT ABX S9502 [facility], [facility], ANTIVIRAL 6 INC INC /ANTIFUNG AL; Q8 HRS SISAL PICKER HIT ABX S9501 [facility], [facility], ANTIVIRAL 6 INC INC /ANTIFUNG AL TX; Q12 HRS LEVI HIT ABX S9501 [facility], [facility], ANTIVIRAL 6 INC INC /ANTIFUNG AL TX; Q12 HRS LEIV BASIC 56238 [facility] METABOLIC 6 [facility] PANEL INC INC CALCIUM TOTAL DRUG 41349 [facility] SCREEN 6 [facility] QUANTITAT INC INC JUAN PABLO VANCOMYCI N HIT ABX S9502 [facility], AMER[facility], ANTIVIRAL 6 INC INC /ANTIFUNG AL; Q8 HRS SISAL PICKER COLLECTIO 99753 [facility] N VENOUS 6 [facility] BLOOD INC INC VENIPUNCT URE HIT ABX S9502 [facility], AMERIMED, ANTIVIRAL 6 INC INC /ANTIFUNG AL; Q8 HRS SISAL PICKER HIT ABX S9501 [facility], AMERIMED, ANTIVIRAL 6 INC INC /ANTIFUNG AL TX; Q12 HRS LEVI HIT ABX S9501 [facility], [facility], ANTIVIRAL 6 INC INC /ANTIFUNG AL TX; Q12 HRS LEVI HIT ABX S9502 [facility], AMER[facility], ANTIVIRAL 6 INC INC /ANTIFUNG AL; Q8 HRS SISAL PICKER HIT ABX S9502 [facility], AMER[facility], ANTIVIRAL 6 INC INC /ANTIFUNG AL; Q8 HRS SISAL PICKER THER 30864 [facility] PROPH/DX 6 [facility] NJX IV INC INC PUSH SINGLE/1S T SBST/DRUG COMPREHEN 61408 [facility] SIVE 6 [facility] METABOLIC INC INC PANEL HIT ABX S9501 [facility], [facility], ANTIVIRAL 6 INC INC /ANTIFUNG AL TX; Q12 HRS LEVI BLOOD 04854 [facility] COUNT 6 [facility] COMPLETE INC INC AUTO&AUTO DIFRNTL WBC THERAPEUT 43825 B[facility] IC 6 [facility] INJECTION INC [place] [address] [facility] HEAD/BRAI 6 [facility] N W/O INC INC CONTRAST MATERIAL INJECTION J2405 [facility] 6 [facility] ONDANSETR INC INC ON HCL PER 1 MG DIRECT G0299 ARELI ESPINOZA RN 6 HOME HOME HOME HEALTH HEALTH HEALTH/HO AGENCY AGENCY SPICE SET EA 15 MIN BLOOD 08177 [facility] COUNT 6 [facility] COMPLETE INC INC AUTO&AUTO DIFRNTL WBC C-REACTIV 92344 [facility] E PROTEIN 6 [facility] INC INC HIT ABX S9501 [facility], [facility], ANTIVIRAL 6 INC INC /ANTIFUNG AL TX; Q12 HRS LEVI COLLECTIO 61901 [facility] N VENOUS 6 [facility] BLOOD INC INC VENIPUNCT URE THERAPEUT 17240 [facility] IC 6 [facility] PROPHYLAC INC INC TIC/DX INJECTION SUBQ/IM SEDIMENTA 07121 [facility] TION RATE 6 [facility] RBC INC INC NON-AUTOM ATED HIT ABX S9502 [facility], [facility], ANTIVIRAL 6 INC INC /ANTIFUNG AL; Q8 HRS SISAL PICKER DRUG 09850 [facility] SCREEN 6 [facility] QUANTITAT INC INC JUAN PABLO VANCOMYCI N BASIC 11380 [facility] METABOLIC 6 [facility] PANEL INC INC CALCIUM TOTAL HIT ABX S9502 [facility], AMER[facility], ANTIVIRAL 6 INC INC /ANTIFUNG AL; Q8 HRS SISAL PICKER HIT ABX S9501 [facility], AMER[facility], ANTIVIRAL 6 INC INC /ANTIFUNG AL TX; Q12 HRS LEVI INJ J2543 [facility], [facility], PIPERACIL 6 INC INC HERMILO SOD/TAZOB ACTAM SOD 1 G/0.125 G INJECTION J3370 [facility], AMERIMED, 6 INC INC VANCOMYCI N HCL 500 MG HIT ABX S9501 [facility], [facility], ANTIVIRAL 6 INC INC /ANTIFUNG AL TX; Q12 HRS LEVI HIT ABX S9502 [facility], AMER[facility], ANTIVIRAL 6 INC INC /ANTIFUNG AL; Q8 HRS SISAL PICKER HIT ABX S9502 [facility], AMERIMED, ANTIVIRAL 6 INC INC /ANTIFUNG AL; Q8 HRS SISAL PICKER HIT ABX S9501 [facility], AMER[facility], ANTIVIRAL 6 INC INC /ANTIFUNG AL TX; Q12 HRS LEVI HIT ABX S9501 [facility], [facility], ANTIVIRAL 6 INC INC /ANTIFUNG AL TX; Q12 HRS LEVI HIT ABX S9502 [facility], AMERIMED, ANTIVIRAL 6 INC INC /ANTIFUNG AL; Q8 HRS SISAL PICKER HIT ABX S9502 [facility], AMERIMED, ANTIVIRAL 6 INC INC /ANTIFUNG AL; Q8 HRS SISAL PICKER HIT ABX S9501 [facility], AMER[facility], ANTIVIRAL 6 INC INC /ANTIFUNG AL TX; Q12 HRS LEVI INJECTION J3370 [facility], AMERIMED, 6 INC INC VANCOMYCI N HCL 500 MG INJ J2543 [facility], [facility], PIPERACIL 6 INC INC HERMILO SOD/TAZOB ACTAM SOD 1 G/0.125 G INJECTION J1642 [facility], [facility], HEPARIN 6 INC INC SODIUM PER 10 UNITS HIT ABX S9502 [facility], AMER[facility], ANTIVIRAL 6 INC INC /ANTIFUNG AL; Q8 HRS SISAL PICKER HIT ABX S9502 [facility], AMERIMED, ANTIVIRAL 6 INC INC /ANTIFUNG AL; Q8 HRS SISAL PICKER BASIC 49087 [facility] METABOLIC 6 [facility] PANEL INC INC CALCIUM TOTAL DRUG 94588 [facility] SCREEN 6 [facility] QUANTITAT INC INC JUAN PABLO VANCOMYCI N BLOOD 05542 [facility] COUNT 6 [facility] COMPLETE INC INC AUTO&AUTO DIFRNTL WBC DIRECT G0299 [facility] SINGLETON SNS RN 6 HOME HOME HOME HEALTH HEALTH HEALTH/HO AGENCY AGENCY SPICE SET EA 15 MIN C-REACTIV 38947 [facility] E PROTEIN 6 [facility] INC INC COLLECTIO 64098 B[facility] N VENOUS 6 [facility] BLOOD INC INC VENIPUNCT URE SEDIMENTA 16502 [facility] TION RATE 6 [facility] RBC INC INC NON-AUTOM ATED HIT ABX S9502 [facility], AMER[facility]ED, ANTIVIRAL 6 INC INC /ANTIFUNG AL; Q8 HRS SISAL PICKER HIT ABX S9502 [facility], AMERIMED, ANTIVIRAL 6 INC INC /ANTIFUNG AL; Q8 HRS SISAL PICKER HIT ABX S9502 [facility], AMERIMED, ANTIVIRAL 6 INC INC /ANTIFUNG AL; Q8 HRS SISAL PICKER HIT ABX S9502 [facility], AMERIMED, ANTIVIRAL 6 INC INC /ANTIFUNG AL; Q8 HRS SISAL PICKER INJ J2543 [facility], AMERIMED, PIPERACIL 6 INC INC HERMILO SOD/TAZOB ACTAM SOD 1 G/0.125 G INJECTION J3370 [facility], AMERIMED, 6 INC INC VANCOMYCI N HCL 500 MG INJECTION J1642 [facility], [facility], HEPARIN 6 INC INC SODIUM PER 10 UNITS HIT ABX S9502 [facility], AMER[facility], ANTIVIRAL 6 INC INC /ANTIFUNG AL; Q8 HRS SISAL PICKER HIT ABX S9502 [facility], AMER[facility], ANTIVIRAL 6 INC INC /ANTIFUNG AL; Q8 HRS SISAL PICKER DIRECT G0299 [facility] RN 6 HOME HOME HOME HEALTH HEALTH HEALTH/HO AGENCY AGENCY SPICE SET EA 15 MIN HIT ABX S9502 [facility], AMERIMED, ANTIVIRAL 6 INC INC /ANTIFUNG AL; Q8 HRS SISAL PICKER BLOOD 06053 [facility] COUNT 6 [facility] COMPLETE INC INC AUTO&AUTO DIFRNTL WBC C-REACTIV 66093 [facility] E PROTEIN 6 [facility] INC INC SEDIMENTA 22445 [facility] TION RATE 6 [facility] RBC INC INC NON-AUTOM ATED DRUG 58098 [facility] SCREEN 6 [facility] QUANTITAT INC INC JUAN PABLO VANCOMYCI N BASIC 94546 B[facility] METABOLIC 6 [facility] PANEL INC INC CALCIUM TOTAL DRUG TST G0477 B[facility] PRESUMP;C 6 [facility] PBL BEING INC INC READ DC OPT OBV ONLY HIT ABX S9502 [facility], AMERIMED, ANTIVIRAL 6 INC INC /ANTIFUNG AL; Q8 HRS SISAL PICKER HIT ABX S9502 [facility], AMERIMED, ANTIVIRAL 6 INC INC /ANTIFUNG AL; Q8 HRS SISAL PICKER HIT ABX S9502 [facility], AMERIMED, ANTIVIRAL 6 INC INC /ANTIFUNG AL; Q8 HRS SISAL PICKER INJECTION J1642 [facility], AMERIMED, HEPARIN 6 INC INC SODIUM PER 10 UNITS INJECTION J3370 [facility], AMERIMED, 6 INC INC VANCOMYCI N HCL 500 MG DIRECT G0299 ARELI ESPINOZA RN 6 HOME HOME HOME HEALTH HEALTH HEALTH/HO AGENCY AGENCY SPICE SET EA 15 MIN INJ J2543 [facility], AMER[facility], PIPERACIL 6 INC INC HERMILO SOD/TAZOB ACTAM SOD 1 G/0.125 G [facility] [address] [facility] 6 ARTURO ARTURO DAY MANAGEMEN T 30 MIN/< SBSQ 51451 [place] [address] SENA SENA CARE/DAY 25 MINUTES SBSQ 70476 [place] [address] SENA SENA CARE/DAY 25 MINUTES SBSQ 79622 [facility] 6 ARTURO ARTURO CARE/DAY 25 MINUTES MODERATE 06045 [facility] [place] [facility] SEDATJ 6 RADIOLOGY SAIMA SAME PHYS/QHP 5/>YRS INIT 30 MIN SBSQ 76434 [place] [address] SE[place] SE[place] CARE/[place] [address] [place] [address] [facility] [place] GUIDANCE 6 RADIOLOGY [place] NEEDLE PLACEMENT PRQ ASPIR 50682 [facility] [place] 6 RADIOLOGY [place] PULPOSUS/ INTERVERT EBRAL DISC/PVRT TISS INTRODUCT [id number] [facility] ION OTH [address] [place] [address] ANTI-INFE CTIVE PERIPH VEIN PERQ INSERTION [id number] [facility] INFUSION [address] [place] [address] DEVICE RT BASILIC VEIN PERQ EXCISION [id number] [facility] THORACIC [address] [place] [address] VERTEBRAL DISC PERQ DIAGNOSTI C ULTRASONO [id number] [facility] GRAPHY 6 H[facility]PITAL HOSPITAL HEART WITH AORTA TRANSESOP HAGEAL SBSQ 53505 [facility] 6 SENA SENA CARE/DAY 35 MINUTES INITIAL 86354 [facility] 6 SENA SENA CARE/DAY 70 MINUTES RADEX 16857 [facility] 6 [place] LUMBOSACR ORTHOPAED AL 2/3 [facility] VIEWS BLOOD 18735 [facility] COUNT 5 [facility] COMPLETE INC INC AUTO&AUTO DIFRNTL WBC COLLECTIO 33967 B[facility] N VENOUS 5 [facility] BLOOD INC INC VENIPUNCT URE BASIC 84520 [facility] METABOLIC 5 [facility] PANEL INC INC CALCIUM TOTAL DRUG 48032 [facility] SCREEN 5 [facility] QUANT INC INC AMPHETAMI CHEMO 1 OR 2 COLLECTIO 83047 [facility] N VENOUS 5 [facility] BLOOD INC INC VENIPUNCT URE COMPREHEN 16503 [facility] SIVE 5 [facility] METABOLIC INC INC PANEL SEDIMENTA 27493 [facility] TION RATE 5 [facility] RBC INC INC NON-AUTOM ATED BLOOD 21386 [facility] COUNT 5 [facility] COMPLETE INC INC AUTO&AUTO DIFRNTL WBC C-REACTIV 95614 [facility] E PROTEIN 5 [facility] INC INC MRI 78146 B[facility] SPINAL 5 [facility] CANAL INC INC THORACIC W/O CONTRAST MATRL MRI 33042 [facility] SPINAL 5 [facility] CANAL INC INC LUMBAR W/O CONTRAST MATERIAL 3D 19237 B[facility] RENDERING 5 [facility] W/INTERP INC INC & POSTPROCE SS SUPERVISI ON RADEX 66927 [facility] [place] TEE SPINE 5 RADIOLOGY RHO LUMBOSACR AL 2/3 VIEWS COMPLEX 81731 [facility] UROFLOMET 4 AMMON CHASE JOSE RAMON RY COMPLX 26094 [facility] CYSTOMETR 4 AMMON CHASE JOSE RAMON O W/VOID PRESS & [place] [address] [facility] TRANSVAGI 4 [facility] INC INC CULTURE 96136 [facility] CHLAMYDIA 4 AMMON CHASE JOSE RAMON ANY SOURCE IADNA 60540 [facility] NEISSERIA 4 AMMON ALBRIGHT GONORRHOE AE DIRECT PROBE TQ BLOOD 62272 INGR[facility]DE OCCULT 4 AMMON [facility]IGHT PEROXIDAS E ACTV QUAL FECES 1-3 SPEC URINLS 78459 INGRID VERDE DIP 4 AMMON AL[facility]IGHT STICK/TAB LET REAGNT NON-AUTO MICRSCPY Encounters Encounter Start End Date Code Location Performer Type Date OFFICE 81314 SANAM NUNO [facility] 7 7 HEALTH T VISIT SOLUTIONS 25 IN [facility] BLAZE - 6 6 [facility] 88952 NADIA NUNO [facility] 6 6 [place] [address] [facility] BLA[facility] - 6 6 [facility] - 6 6 [facility] 6 [facility] - 6 6 [facility] BLA[facility] - 6 6 [facility] OFFICE 93955 [facility] 6 6 T VISIT IN[facility]ECTIOU 25 S DISEASE [facility] BLAZE - 6 6 [facility] BLAZE - 6 6 [facility] OUTPATIEN [facility] OFFICE 87612 [facility]ELARDO [facility] T [facility]ISIT INFECTIOU 25 S DISEASE MINUTES [place] [facility], 6 6 HOME INPATIENT [facility]ALTH [facility] B[facility] 6 6 [facility] OUT[facility] EMERGENCY 90187 LAUREN MARTINEZ DEPT 6 6 PHYSICIAN LENIN VISIT S, [facility] HIGH SEVERITY& THREAT [facility] EMERGENCY 26775 BLAZE 6 6 [facility] DEPARTMEN [facility] T VISIT MODERATE [facility]VERITY HOSPITAL BLAZE - 6 6 [facility] EMERGENCY 60747 LAUREN HALE 6 6 PHYSICIAN U MARY [facility] S, [facility] T VISIT HIGH/URGE NT SEVERITY EMERGENCY 00607 BLZAE 6 6 [facility] T VISIT MODERATE [facility]VERITY [facility]OSPITAL BLAZE - 6 6 [facility] OUT[facility]IEN [facility] HOME [facility], 6 6 HOME [facility] - 6 6 [facility] BLAZE - 6 6 [facility] 6 6 HOME [facility] - 6 6 HOSPITAL INPATIENT OFFICE 71204 [facility] 6 6 [place] T VISIT ORTHOPAED 15 [facility] MINUTES [facility]OSPITAL BLAZE [facility] 5 5 [facility] LBAZE - 5 5 [facility] OUTPATIEN [facility] OFFICE 20330 [facility] OUTPATIEN 5 5 PHYSICIAN LENIN T VISIT S GROUP 10 MINUTES OFFICE 19690 [facility] CONSULTAT 5 5 [place] ION ORTHOPAED NEW/ESTAB [facility] PATIENT 60 MIN [facility] 52808 [facility] 5 PHYSICIAN LENIN T VISIT S GROUP 10 MINUTES HOSPITAL BLAZE - 5 5 [facility] B[facility] 5 5 [facility] BLAZE - 5 5 [facility] T OFFICE 66669 [facility] OUTPATIEN 5 5 PHYSICIAN LENIN T VISIT S GROUP 10 MINUTES EMERGENCY 13265 LAUREN MCNEILL 5 5 PHYSICIAN DEPARTMEN S, [facility] T VISIT HIGH/URGE NT SEVERITY EMERGENCY 85817 [facility] BLAZE 5 5 MALATHI [facility] DEPARTMEN EMERGENCY T VISIT PHYS HIGH/URGE NT SEVERITY OFFICE 35469 INGRID VERDE OUTPATIEN 4 4 AMMON ALBRIGHT T VISIT 15 MINUTES HOSPITAL BLAZE - 4 4 [facility] INITIAL 70845 INGRID VERDE PREVENTIV 4 4 AMMON ALBRIGHT E MEDICINE NEW PATIENT [id number] EMERGENCY [address] [facility] JUAN 4 4 MALATHI LENIN DEPARTMEN EMERGENCY T VISIT PHYS MODERATE SEVERITY
--- OUTSIDE RECORDS SUMMARY | 2017-05-06 19:30 | External Medical Summary Rpt ---
Author Author , AMELIA CISNEROS Address Unknown Phone [email or web address] Care Team Providers Care Cinnamon Grinder Name Role Phone [employer], Unavailable Unavailable [...] NAN MASON CHARITO, MASON CHARITO Unavailable Unavailable [facility] ZORAIDA ARTURO, ZORAIDA Unavailable Unavailable ARTURO ZORAIDA ARTURO, ZORAIDA Unavailable Unavailable ART[facility]O [facility] Unavailable Unavailable DISEASE, STEPHAN INFECTIOUS DISEASE [facility] Unavailable Unavailable URGENT TREAT, [facility] Unavailable [facility], [facility] SCALF KEITH, SCALF KEITH Unavailable Unavailable SOTINGEANU MARY, Unavailable Unavailable SOTINGEANU MARY [facility] Unavailable Unavailable EMERGENCY PHYS, [facility], Unavailable Unavailable [facility] Unavailable Unavailable [facility]IONS [facility], [facility] Unavailable Unavailable AGENCY, [facility] Purpose Continuity of Care Document - 05-18-2014 through 2016 Problems Code Diagnosis DOS Provider Status K219 GASTRO-ESOP 04-05-2017 [facility] DISE[facility] SOLUTIONS WITHOUT IN ESOPHAGITIS K5900 CONSTIPATIO 04-05-2017 [facility] N [facility] UNSPECIFIED SOLUTIONS IN R0781 PLEURODYNIA 04-05-2017 [facility] IN R600 LOCALIZED 04-05-2017 [facility] SOLUT[facility] IN Z1231 ENCOUNTER 04-05-2017 [facility]MO MALIG SOLUTIONS NEOPLASM IN BREAST E278 [...] HOSP D/O INC W/RADICULOP ATHY LUMB RGN [id number] OTHER LONG 01-24-2016 [facility] CURRENT INC DRUG THERAPY M4644 DISCITIS 12-28-2015 [facility] UNSPECIFIED [facility] THORACIC INC REGION M545 LOW BACK 12-07-2015 [facility] PAIN [facility] INC 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 M8618 OTHER ACUTE 11-20-2015 [facility] INC OSTEOMYELIT IS OTHER SITE R197 DIARRHEA 11-17-2015 [facility] UNSPECIFIED [facility] INC M159 POLYOSTEOAR 11-03-2015 [facility] UNSPECIFIED AGENCY Z452 ENCOUNTER 11-03-2015 [facility] ADJUSTMENT& HEALTH MGMT AGENCY VASCULAR ACCESS DEVICE Z720 TOBACCO USE 11-03-2015 [facility] AGENCY I10 ESSENTIAL 10-28-2015 [facility] HYPERTENSIO PLLC N I159 SECONDARY 10-28-2015 [facility] HYPERTENSIO [facility] N INC UNSPECIFIED R51 HEADACHE 10-28-2015 [facility] U47059 MIGRAINE 10-27-2015 [facility] W/O [facility], NOT INTRACT PLLC W/O STAT MIGRAIN M129 ARTHROPATHY 10-07-2015 ZORAIDA ARTURO UNSPECIFIED M869 OSTEOMYELIT 10-07-2015 ZORAIDA ARTURO IS UNSPECIFIED M5184 OTHER 10-06-2015 [facility] [place] [facility] RADIOLOGY RAL DISC D/O THORACIC REGION E441 MILD 10-04-2015 [facility] ORIE MALNUTRITIO N E871 HYPO-OSMOLA 10-04-2015 [facility] HYPONATREMI A K521 TOXIC 10-04-2015 [facility] ITIS AND COLITIS K5909 OTHER 10-04-2015 [facility] N N179 ACUTE 10-04-2015 [facility] KIDNEY [facility] FAILURE UNSPECIFIED J001I3O ADVERSE 10-04-2015 [facility] HOSPITAL SYS ANTIBIOTICS INIT ENCNTR Z681 BODY MASS 10-04-2015 [facility] INDEX BMI HOSPITAL 19 OR LESS ADULT M549 DORSALGIA 09-29-2015 [facility]PECIF[facility] INC B37979 PAIN IN 09-01-2015 [facility] UNSPECIFIED [facility] SHOULDER INC M546 PAIN IN 08-24-2015 [facility] R937 ABN FIND ON 08-24-2015 [facility] MUSCULOSKEL ETAL SYS M5126 OTH 08-15-2015 [facility]AL 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[facility] ASS DISPLACEMEN T LUMBAR RGN R200 ANESTHESIA 08-15-2015 [facility] 7242 LUMBAGO 04-02-2015 [facility] 61888 DEGEN 03-28-2015 [facility] LUMBAR/LUMB N EMERGENCY OSACRAL PHYS INTERVERTEB RAL DISC 7244 THORACIC/KATHRINE 03-28-2015 [facility] [place] MBOSACRAL RADIOLOGY NEURITIS/RA DICULITIS UNSPEC 8472 LUMBAR 03-28-2015 [facility] SPRAIN AND N EMERGENCY STRAIN PHYS E9270 OVEREXERTIO 03-28-2015 [facility] N FROM N EMERGENCY SUDDEN PHYS STRENUOUS MOVEMENT 36282 TRICHOMONAL 07-12-2014 INGR[facility] VERDE MD VULVOVAGINI TIS 95712 DETRUSOR 07-12-2014 INGR[facility] Mock SPHINCTER AMMON CHASE DYSSYNERGIA 6272 SYMPTOMATIC 07-12-2014 [facility] VERDE MD MENOPAUSAL/ FEMALE CLIMACTERIC STATES 77230 UNS PROLAPS 07-06-2014 INGR[facility] Mock VAG SINGH [...] 07 08 14 7 00 RO Ac OR 05 -1 -0 .0 00 SS ti [...] 07 07 16 8 00 CA Ac OR 05 -0 -2 .0 00 RL ti [...] L S 20 MG TA BL ET OR 00 06 07 30 30 00 CA [...] 06 07 14 7 00 RO Ac OR 05 -2 -2 .0 00 SS ti EN 40 8- 1- 00 01 ve OR [address] PH 91 17 17 82 UG IN 3 66 S -N AL OX ON 8- 2 MG SL OR 00 06 07 90 30 00 CA [...] LT Y TA CA BL RE ET OR 00 05 [address] [...] Y 10 CA RE MG TA B OR 00 04 05 [address] [...] 03 03 10 5 00 RO Ac OR 05 -0 -2 .0 00 SS ti [...] UG 0 S MG TA BL ET OR 00 02 02 30 30 00 CA [...] UG 0 S MG TA BL ET OR 00 12 30 30 00 CA Ac [...] Procedure [place] [address] [facility] [place] SCAL[facility] KEITH HEAD/BRAI 6 RADIOLOGY N W/[place] [address] [facility] [place] [facility]AL[facility] ABDOMEN & 6 [...] INC READ DC OPT OBV ONLY DRUG 94220 BLAZE [facility] SCREENING 6 [facility] OPIOIDS INC INC & OPIATE ANALOGS 5/MORE DRUG 41781 [facility] SCREENING 6 [facility] INC INC BENZODIAZ EPINES 1-12 DRUG TST G0477 [facility] HAMMONDON PRESUMP;C 6 [facility] PBL BEING INC INC READ DC OPT OBV ONLY HIT ABX S9502 [facility], [facility], ANTIVIRAL 6 INC INC /ANTIFUNG AL; Q8 HRS COLLEGE ADVISOR HIT ABX S9502 [facility], [facility], ANTIVIRAL 6 INC INC /ANTIFUNG AL; Q8 HRS COLLEGE ADVISOR HIT ABX S9502 [facility], [facility], ANTIVIRAL 6 INC INC /ANTIFUNG AL; Q8 HRS COLLEGE ADVISOR HIT ABX S9502 [facility], AMER[facility], ANTIVIRAL 6 INC INC /ANTIFUNG AL; Q8 HRS COLLEGE ADVISOR INJ J2543 [facility], [facility], PIPERACIL 6 INC INC HERMILO SOD/TAZOB ACTAM SOD 1 G/0.125 G DIRECT G0299 [facility] RN 6 HOME HOME HOME HEALTH HEALTH HEALTH/HO AGENCY AGENCY SPICE SET EA 15 MIN BLOOD 01869 [facility] COUNT 6 [facility] COMPLETE INC INC AUTO&AUTO DIFRNTL WBC COMPREHEN 18068 B[facility] SIVE 6 [facility] METABOLIC INC INC PANEL COLLECTIO 94813 BLAZECORRINE THAKUR N VENOUS 6 [facility] BLOOD INC INC VENIPUNCT URE C-REACTIV 17781 BLAZECORRINE HAMMONDON E PROTEIN 6 [facility] INC INC SEDIMENTA 51045 [facility] TION RATE 6 [facility] RBC INC INC NON-AUTOM ATED INJECTION J1642 [facility], [facility], HEPARIN 6 INC INC SODIUM PER 10 UNITS HIT ABX S9502 [facility], [facility], ANTIVIRAL 6 INC INC /ANTIFUNG AL; Q8 HRS COLLEGE ADVISOR INJ J2543 [facility], [facility], PIPERACIL 6 INC INC HERMILO SOD/TAZOB ACTAM SOD 1 G/0.125 G INJ J2543 [facility], [facility], PIPERACIL 6 INC INC HERMILO SOD/TAZOB ACTAM SOD 1 G/0.125 G DIRECT G0299 ARELI SINGLETON SNS RN 6 HOME HOME HOME HEALTH HEALTH HEALTH/HO AGENCY AGENCY SPICE SET EA 15 MIN HIT ABX S9502 [facility], AMER[facility], ANTIVIRAL 6 INC INC /ANTIFUNG AL; Q8 HRS COLLEGE ADVISOR DRUG TST G0477 [facility] PRESUMP;C 6 [facility] PBL BEING INC INC READ DC OPT OBV ONLY INJ J2543 [facility], [facility], PIPERACIL 6 INC INC HERMILO SOD/TAZOB ACTAM SOD 1 G/0.125 G HIT ABX S9502 [facility], [facility], ANTIVIRAL 6 INC INC /ANTIFUNG AL; Q8 HRS COLLEGE ADVISOR HIT ABX S9502 [employer], [facility], ANTIVIRAL 6 INC INC /ANTIFUNG AL; Q8 HRS COLLEGE ADVISOR HIT ABX S9502 [facility], [facility], ANTIVIRAL 6 INC INC /ANTIFUNG AL; Q8 HRS COLLEGE ADVISOR HIT ABX S9502 [facility], [facility], ANTIVIRAL 6 INC INC /ANTIFUNG AL; Q8 HRS COLLEGE ADVISOR HIT ABX S9502 [employer], [facility], ANTIVIRAL 6 INC INC /ANTIFUNG AL; Q8 HRS COLLEGE ADVISOR INJECTION J1642 [facility], [facility], HEPARIN 6 INC INC SODIUM PER 10 UNITS INJ J2543 [facility], [facility], PIPERACIL 6 INC INC HERMILO SOD/TAZOB ACTAM SOD 1 G/0.125 G DIRECT G0299 [facility] SNS RN 6 HOME HOME HOME HEALTH HEALTH HEALTH/HO AGENCY AGENCY SPICE SET EA 15 MIN HIT ABX S9502 [facility], AMER[facility], ANTIVIRAL 6 INC INC /ANTIFUNG AL; Q8 HRS COLLEGE ADVISOR BLOOD 27641 [facility] COUNT 6 [facility] COMPLETE INC INC AUTO&AUTO DIFRNTL WBC SEDIMENTA 92483 [facility] TION RATE 6 [facility] RBC INC INC NON-AUTOM ATED HIT ABX S9501 [facility], [facility], ANTIVIRAL 6 INC INC /ANTIFUNG AL TX; Q12 HRS LEVI C-REACTIV 56697 [facility] E PROTEIN 6 [facility] INC INC COLLECTIO 04754 [facility] N VENOUS 6 [facility] BLOOD INC INC VENIPUNCT URE BASIC 37489 BLA[facility] TH[facility] METABOLIC 6 [facility] PANEL INC INC CALCIUM TOTAL DRUG 07880 [facility] SCREEN 6 [facility] QUANTITAT INC INC JUAN PABLO VANCOMYCI N HIT ABX S9501 [facility], [facility], ANTIVIRAL 6 INC INC /ANTIFUNG AL TX; Q12 HRS LEVI HIT ABX S9502 [employer], [facility], ANTIVIRAL 6 INC INC /ANTIFUNG AL; Q8 HRS COLLEGE ADVISOR HIT ABX S9502 [employer], [facility], ANTIVIRAL 6 INC INC /ANTIFUNG AL; Q8 HRS COLLEGE ADVISOR HIT ABX S9501 [facility], [facility], ANTIVIRAL 6 INC INC /ANTIFUNG AL TX; Q12 HRS LEVI HIT ABX S9501 [facility], [facility], ANTIVIRAL 6 INC INC /ANTIFUNG AL TX; Q12 HRS LEVI BASIC 46010 [facility] METABOLIC 6 [facility] PANEL INC INC CALCIUM TOTAL DRUG 55098 [facility] SCREEN 6 [facility] QUANTITAT INC INC JUAN PABLO VANCOMYCI N HIT ABX S9502 [facility], [facility], ANTIVIRAL 6 INC INC /ANTIFUNG AL; Q8 HRS COLLEGE ADVISOR COLLECTIO 11682 [facility] N VENOUS 6 [facility] BLOOD INC INC VENIPUNCT URE HIT ABX S9502 [employer], [employer], ANTIVIRAL 6 INC INC /ANTIFUNG AL; Q8 HRS COLLEGE ADVISOR HIT ABX S9501 [facility], [facility], ANTIVIRAL 6 INC INC /ANTIFUNG AL TX; Q12 HRS LEVI HIT ABX S9501 [employer], [employer], ANTIVIRAL 6 INC INC /ANTIFUNG AL TX; Q12 HRS LEVI HIT ABX S9502 [employer], AMER[facility], ANTIVIRAL 6 INC INC /ANTIFUNG AL; Q8 HRS COLLEGE ADVISOR HIT ABX S9502 [facility], [facility], ANTIVIRAL 6 INC INC /ANTIFUNG AL; Q8 HRS COLLEGE ADVISOR THER 17988 [facility] PROPH/DX 6 [facility] NJX IV INC INC PUSH SINGLE/1S T SBST/DRUG COMPREHEN 87512 [facility] SIVE 6 [facility] METABOLIC INC INC PANEL HIT ABX S9501 [facility], [facility], ANTIVIRAL 6 INC INC /ANTIFUNG AL TX; Q12 HRS LEVI BLOOD 92217 [facility] COUNT 6 [facility] COMPLETE INC INC AUTO&AUTO DIFRNTL WBC THERAPEUT 58150 [facility] IC 6 [facility] INJECTION INC [place] [address] [facility] HEAD/BRAI 6 [facility] N W/O INC INC CONTRAST MATERIAL INJECTION J2405 [facility] 6 [facility] ONDANSETR INC INC ON HCL PER 1 MG DIRECT G0299 ARELI ESPINOZA RN 6 HOME HOME HOME HEALTH HEALTH HEALTH/HO AGENCY AGENCY SPICE SET EA 15 MIN BLOOD 25384 [facility] COUNT 6 [facility] COMPLETE INC INC AUTO&AUTO DIFRNTL WBC C-REACTIV 52199 [facility] E PROTEIN 6 [facility] INC INC HIT ABX S9501 [facility], [facility], ANTIVIRAL 6 INC INC /ANTIFUNG AL TX; Q12 HRS LEVI COLLECTIO 43350 [facility] N VENOUS 6 [facility] BLOOD INC INC VENIPUNCT URE THERAPEUT 82824 [facility] IC 6 [facility] PROPHYLAC INC INC TIC/DX INJECTION SUBQ/IM SEDIMENTA 63484 [facility] TION RATE 6 [facility] RBC INC INC NON-AUTOM ATED HIT ABX S9502 [facility], [facility], ANTIVIRAL 6 INC INC /ANTIFUNG AL; Q8 HRS COLLEGE ADVISOR DRUG 89953 [facility] SCREEN 6 [facility] QUANTITAT INC INC JUAN PABLO VANCOMYCI N BASIC 89369 [facility] METABOLIC 6 [facility] PANEL INC INC CALCIUM TOTAL HIT ABX S9502 [facility], AMER[facility], ANTIVIRAL 6 INC INC /ANTIFUNG AL; Q8 HRS COLLEGE ADVISOR HIT ABX S9501 [facility], AMER[facility], ANTIVIRAL 6 [...] 6 INC INC /ANTIFUNG AL; Q8 HRS COLLEGE ADVISOR HIT ABX S9502 [employer], AMERIMED, ANTIVIRAL 6 INC INC /ANTIFUNG AL; Q8 HRS COLLEGE ADVISOR HIT ABX S9501 [facility], AMERIM[employer], ANTIVIRAL 6 INC INC /ANTIFUNG AL TX; Q12 HRS LEVI HIT ABX S9501 [facility], AMER[facility], ANTIVIRAL 6 INC INC /ANTIFUNG AL TX; Q12 HRS LEVI HIT ABX S9502 [employer], AMER[employer], ANTIVIRAL 6 INC INC /ANTIFUNG AL; Q8 HRS COLLEGE ADVISOR HIT ABX S9502 [facility], AMERIMED, ANTIVIRAL 6 INC INC /ANTIFUNG AL; Q8 HRS COLLEGE ADVISOR HIT ABX S9501 [facility], AMERIMED, ANTIVIRAL 6 [...] 6 INC INC /ANTIFUNG AL; Q8 HRS COLLEGE ADVISOR HIT ABX S9502 [facility], AMERIMED, ANTIVIRAL 6 INC INC /ANTIFUNG AL; Q8 HRS COLLEGE ADVISOR BASIC 19856 [facility] METABOLIC 6 [facility] PANEL INC INC CALCIUM TOTAL DRUG 83783 [facility] SCREEN 6 [facility] QUANTITAT INC INC JUAN PABLO VANCOMYCI N BLOOD 15305 [facility] COUNT 6 [facility] COMPLETE INC INC AUTO&AUTO DIFRNTL WBC DIRECT G0299 ARELI SINGLETON SNS RN 6 HOME HOME HOME HEALTH HEALTH HEALTH/HO AGENCY AGENCY SPICE SET EA 15 MIN C-REACTIV 76498 [facility] E PROTEIN 6 [facility] INC INC COLLECTIO 36469 B[facility] N VENOUS 6 [facility] BLOOD INC INC VENIPUNCT URE SEDIMENTA 53353 [facility] TION RATE 6 [facility] RBC INC INC NON-AUTOM ATED HIT ABX S9502 [facility], AMER[employer], ANTIVIRAL 6 INC INC /ANTIFUNG AL; Q8 HRS COLLEGE ADVISOR HIT ABX S9502 [facility], AMER[facility], ANTIVIRAL 6 INC INC /ANTIFUNG AL; Q8 HRS COLLEGE ADVISOR HIT ABX S9502 [facility], AMER[facility], ANTIVIRAL 6 INC INC /ANTIFUNG AL; Q8 HRS COLLEGE ADVISOR HIT ABX S9502 [facility], AMERIM[facility], ANTIVIRAL 6 INC INC /ANTIFUNG AL; Q8 HRS COLLEGE ADVISOR INJ J2543 [facility], [facility], PIPERACIL 6 INC INC HERMILO SOD/TAZOB ACTAM SOD 1 G/0.125 G INJECTION J3370 [facility], AMERIM[facility], 6 INC INC VANCOMYCI N HCL 500 MG INJECTION J1642 [facility], [facility], HEPARIN 6 INC INC SODIUM PER 10 UNITS HIT ABX S9502 [facility], AMER[facility], ANTIVIRAL 6 INC INC /ANTIFUNG AL; Q8 HRS COLLEGE ADVISOR HIT ABX S9502 [facility], [facility], ANTIVIRAL 6 INC INC /ANTIFUNG AL; Q8 HRS COLLEGE ADVISOR DIRECT G0299 [facility] SNS RN 6 HOME HOME HOME HEALTH HEALTH HEALTH/HO AGENCY AGENCY SPICE SET EA 15 MIN HIT ABX S9502 [facility], AMER[facility], ANTIVIRAL 6 INC INC /ANTIFUNG AL; Q8 HRS COLLEGE ADVISOR BLOOD 13269 [facility] COUNT 6 [facility] COMPLETE INC INC AUTO&AUTO DIFRNTL WBC C-REACTIV 32941 [facility] E PROTEIN 6 [facility] INC INC SEDIMENTA 27536 [facility] TION RATE 6 [facility] RBC INC INC NON-AUTOM ATED DRUG 45919 [facility] SCREEN 6 [facility] QUANTITAT INC INC JUAN PABLO VANCOMYCI N BASIC 87860 B[facility] METABOLIC 6 [facility] PANEL INC INC CALCIUM TOTAL DRUG TST G0477 [facility] PRESUMP;C 6 [facility] PBL BEING INC INC READ DC OPT OBV ONLY HIT ABX S9502 [facility], AMERIMED, ANTIVIRAL 6 INC INC /ANTIFUNG AL; Q8 HRS COLLEGE ADVISOR HIT ABX S9502 [facility], [facility], ANTIVIRAL 6 INC INC /ANTIFUNG AL; Q8 HRS COLLEGE ADVISOR HIT ABX S9502 [facility], AMER[facility], ANTIVIRAL 6 INC INC /ANTIFUNG AL; Q8 HRS COLLEGE ADVISOR INJECTION J1642 [facility], AMERIMED, HEPARIN 6 INC INC SODIUM PER 10 UNITS INJECTION J3370 [facility], [facility], 6 INC INC VANCOMYCI N HCL 500 MG DIRECT G0299 ARELI ESPINOZA RN 6 HOME HOME HOME HEALTH HEALTH HEALTH/HO AGENCY AGENCY SPICE SET EA 15 MIN INJ J2543 [facility], [facility], PIPERACIL 6 INC INC HERMILO SOD/TAZOB ACTAM SOD 1 G/0.125 G [facility] 85643 [facility] 6 ARTURO ARTURO DAY MANAGEMEN T 30 MIN/< SBSQ [address] [place] [address] SENA SENA CARE/DAY 25 MINUTES SBSQ 98333 [place] [address] SENA SENA CARE/DAY 25 MINUTES SBSQ 04176 [facility] 6 ARTURO ARTURO CARE/DAY 25 MINUTES MODERATE 22043 [facility] [place] SEDATJ 6 RADIOLOGY SAIMA SAME PHYS/QHP 5/>YRS INIT 30 MIN SBSQ [address]5594 [place] [address] SENA SENA CARE/[place] [address] [place] [address] [facility] [place] GUIDANCE 6 RADIOLOGY SAIMA NEEDLE PLACEMENT PRQ ASPIR 18015 [facility] [place] 6 RADIOLOGY SAIMA PULPOSUS/ INTERVERT EBRAL DISC/PVRT TISS INTRODUCT [id number] [facility] ION OTH [address] [place] [address] ANTI-INFE CTIVE PERIPH VEIN PERQ INSERTION [id number] [facility] INFUSION [address] [place] [address] DEVICE RT BASILIC VEIN PERQ EXCISION [id number] [facility] THORACIC [address] [place] [address] VERTEBRAL DISC PERQ DIAGNOSTI C ULTRASONO [id number] [facility] GRAPHY 6 HOSPITAL HOSPITAL HEART WITH AORTA TRANSESOP HAGEAL SBSQ 83017 [facility] 6 SENA SENA CARE/DAY 35 MINUTES INITIAL 36463 [facility] 6 SENA SENA CARE/DAY 70 MINUTES RADEX 73463 [facility] 6 [place] LUMBOSACR ORTHOPAED AL 2/3 [facility] VIEWS BLOOD 90503 [facility] COUNT 5 [facility] COMPLETE INC INC AUTO&AUTO DIFRNTL WBC COLLECTIO 77696 B[facility] N VENOUS 5 [facility] BLOOD INC INC VENIPUNCT URE BASIC 02834 [facility] METABOLIC 5 [facility] PANEL INC INC CALCIUM TOTAL DRUG 34546 [facility] SCREEN 5 [facility] QUANT INC INC AMPHETAMI CHEMO 1 OR 2 COLLECTIO 88981 [facility] N VENOUS 5 [facility] BLOOD INC INC VENIPUNCT URE COMPREHEN 10387 B[facility] SIVE 5 [facility] METABOLIC INC INC PANEL SEDIMENTA 34242 [facility] TION RATE 5 [facility] RBC INC INC NON-AUTOM ATED BLOOD 36062 [facility] COUNT 5 [facility] COMPLETE INC INC AUTO&AUTO DIFRNTL WBC C-REACTIV 64546 [facility] E PROTEIN 5 [facility] INC INC MRI 53111 [facility] SPINAL 5 [facility] CANAL INC INC THORACIC W/O CONTRAST MATRL MRI 49790 B[facility] SPINAL 5 [facility] CANAL INC INC LUMBAR W/O CONTRAST MATERIAL 3D 26102 B[facility] RENDERING 5 [facility] W/INTERP INC INC & POSTPROCE SS SUPERVISI ON RADEX 59598 [facility] [place] TEE SPINE 5 RADIOLOGY RHO LUMBOSACR AL 2/3 VIEWS COMPLEX 37861 [facility] UROFLOMET 4 AMMON CHASE JOSE RAMON RY COMPLX 26349 [facility] CYSTOMETR 4 AMMON CHASE JOSE RAMON O W/VOID PRESS & [place] [address] BLAZE THAKUR TRANSVAGI 4 [facility] INC INC CULTURE 92870 INGRID [facility] CHLAMYDIA 4 AMMON CHASE JOSE RAMON ANY SOURCE IADNA 37759 [facility] NEISSERIA 4 AMMON ALBRIGHT GONORRHOE AE DIRECT PROBE TQ BLOOD 33288 [facility] OCCULT 4 AMMON ALBRIGHT PEROXIDAS E ACTV QUAL FECES 1-3 SPEC URINLS 04529 INGR[facility] DIP 4 AMMON ALBRIGHT STICK/TAB LET REAGNT NON-AUTO MICRSCPY Encounters Encounter Start End Date Code Location Performer Type Date OFFICE 89093 SANAM NUN[facility] 7 7 HEALTH T VISIT SOLUTIONS [address] [facility] BLAZE - 6 6 [facility] 17806 NADIA NUNO [facility] 6 6 [place] [address] [facility] BLAZE - 6 6 [facility] BLAZE [facility] 6 6 [facility] - 6 6 [facility] BLAZE [facility] 6 6 [facility] BLAZE [facility] 6 6 [facility] OFFICE 35566 [facility] 6 T VISIT INFECTIOU [address] [facility] BLAZE - 6 6 [facility] OUTPATIEN [facility] BLAZE [facility] 6 6 [facility] OFFICE 54149 ABELARDO [place] [facility] 6 6 T VISIT INFECTIOU 25 S DISEASE MINUTES [place] [facility], 6 6 HOME INPATIENT HEALTH [facility] BLAZE - 6 6 [facility] EMERGENCY 93746 LAUREN MARTINEZ DEPT 6 6 PHYSICIAN LENIN VISIT S, [facility] HIGH SEVERITY& THREAT FUNCJ EMERGENCY 99386 BLAZE 6 6 [facility] T VISIT MODERATE SEVERITY HOSPITAL BLAZE - 6 6 [facility] EMERGENCY 05043 LAUREN HALE 6 6 PHYSICIAN U [facility] S, [facility] T VISIT HIGH/URGE NT SEVERITY EMERGENCY 04084 BLAZE 6 6 [facility] T VISIT MODERATE SEVERITY HOSPITAL BLAZE - 6 6 [facility] OUT[facility]IEN [facility] HOME [facility], 6 6 HOME INPATIENT HEALTH [facility] BLAZE [facility] 6 6 [facility] OUTPATIEN [facility] HOSPITAL BLAZE [facility] 6 6 [facility] HOME [facility], 6 6 HOME INPATIENT HEALTH [facility] - 6 6 HOSPITAL INPATIENT OFFICE [id number] [facility] OUTPATIEN 6 6 [place] T VISIT [facility]THOPAED 15 [facility] MINUTES HOSPITAL BLAZE - 5 5 [facility]PATI[facility] BLAZE - 5 5 [facility] OUTPATIEN [facility] OFFICE 63899 [facility] OUTPATIEN 5 5 PHYSICIAN LEN[place] T VISIT S GROUP 10 MINUTES OFFICE [id number] [facility] CON[facility]ULTAT 5 5 [place] ION ORTHOPAED NEW/ESTAB [facility] PATIENT 60 MIN OFFICE 99421 [facility] OUTPATI[facility] 5 5 PHYSICIAN LENIN T VISIT S GROUP 10 MINUTES HOSPITAL BLAZE [facility] 5 5 [facility] B[facility] - 5 5 [facility] OUT[facility]EN [facility] BLAZE [facility] 5 5 [facility] OUTPATIEN [facility] T OFFICE 34232 [facility] JUAN OUTPATIEN 5 5 PHYSICIAN LENIN T VISIT S GROUP 10 MINUTES EMERGENCY 76160 LAUREN MCNEILL 5 5 PHYSICIAN DEPARTMEN S, [facility] T VISIT HIGH/URGE NT SEVERITY EMERGENCY 20023 [facility] BLAZE 5 5 MALATHI [facility]CO DEPARTMEN EMERGENCY T VISIT PHYS HIGH/URGE NT SEVERITY OFFICE 66825 [facility] OUTPATIEN 4 4 [facility] T VISIT 15 MINUTES HOSPITAL BLAZE - 4 4 [facility] OUTPATIEN [facility] INITIAL 07672 [facility] PREVENTIV 4 4 [facility] E MEDICINE NEW PATIENT [id number] EMERGENCY 60155 [facility] JUAN 4 4 MALATHI LENIN DEPARTMEN EMERGENCY T VISIT PHYS MODERATE SEVERITY
--- OUTSIDE RECORDS SUMMARY | 2017-05-06 19:31 | External Medical Summary Rpt ---
Author Author [employer] Collins, [employer] Organization [employer] Address Unknown Phone Unavailable
== END 2017-05-05 18:39 | disposition home or self-care (01) ==
LOC: UTC 18:04
DX: J20.9 Acute bronchitis, unspecified (principal)